=== PATIENT | female | born 1935 | race Caucasian/White ===

== ENCOUNTER 2024-05-14 13:56 | Inpatient (IN) | payer MEDICARE, OTHER, SELFPAY ==
[2024-05-14] VITALS (41 sets, daily range): BP systolic 68–137; BP diastolic 45–110; BMI 16.6
--- NOTE | 2024-05-14 11:16 | ED.GENMED ---
History of Present Illness
<YUMIKO Gruber - Last Filed: 05/14/24 13:46>
General
Chief Complaint: Breathing Problem
Source: ambulance crew and intermediate
Exam Limitations: none
Time Seen by Provider: 05/14/24 11:15
Nursing documentation reviewed up to this point in time: agreed with
History of Present Illness
History of Present Illness:
89 yr old female sent from [facility] for evaluation.
It is listed that pt is Liberian Speaking. Translation line used pt
per nurse pt was short of breath with low pulse ox 88 % RA. Pt is on O2 2l NC prn but is not compliant with O2 .
Pt is COVID + since Monday started with a cough on Monday. Pt has dementia and is incontinent.
I spoke with daughter in law over the phone. pt is full code. We attempted to use language line in [place]ian however patient does not respond. [id number] reports patient is confused and with dementia does not speak.
Review of Systems
<YUMIKO Gruber - Last Filed: 05/14/24 13:46>
Review of Systems
Allergies reviewed?: Yes
Unable to obtain full review of systems at this time due to: dementia
Other source history: family, intermediate and ambulance crew
All Other Systems: ROS reviewed and negative except as documented in HPI and ROS
Constitutional: Reports fever and fatigue
Respiratory: Reports trouble breathing
Cardiac: Reports no symptoms
ABD/GI: Reports no symptoms
: Reports no symptoms
Musculoskeletal: Reports no symptoms
Skin: Reports no symptoms
Neurological: Reports no symptoms
Psychiatric: Reports no symptoms
Phy Exam
<YUMIKO Gruber - Last Filed: 05/14/24 13:46>
General Physical Exam
General Presentation: no apparent distress
General age: appears stated age
General Skin: warm and dry
General Habitus: elderly
General Mental: confused
General Hydration: dry mucous membranes
Cardiovascular Exam
Cardiovascular Exam: tachycardia
Pulmonary Exam
Pulmonary Exam: respiratory distress and other (Rhonchi throughout ;tachypneic)
Neurological Exam
Neurological Exam: alert and other (does not respond to questions with use of language line in Liberian )
Musculoskeletal Exam
Musculoskeletal Exam: full ROM
Skin Exam
Skin Exam: normal color and warm/dry
Psychiatric Exam
Psychiatric Exam: normal mood/affect
Scores
<YUMIKO Gurber - Last Filed: 05/14/24 13:46>
Heart Failure Risk
Heart Failure Risk Score: Not Applicable
Course
<YUMIKO Gruber - Last Filed: 05/14/24 13:46>
Orders/Labs/Results
Orders:
Orders
05/14/24 11:12
Electrocardiogram (*1) Urgent
Reason for Study: Shortness of Breath
05/14/24 11:13
EKG- Treatment ONCE
05/14/24 11:17
COVID-19 Antigen Urgent
Source: Nasal Swab
Complete Blood Count/With Diff Urgent
Comprehensive Metabolic Panel Urgent
Manual Differential Urgent
Venous Blood Gas Urgent
%Oxygen/Room Air: 80
INF RAPID [Influenza A+B Rapid Molecular] Urgent
ANNETTE Source: Nasal Swab
Specimen Description:
05/14/24 11:22
Portable Chest Xray [CR Chest Portable - 1 View] Urgent
Comment:
Reason For Exam: hypoxia, resp distress
Reason Study Needs to be Portable: Patient Unstable
05/14/24 11:35
Acetaminophen [Tylenol/Feverall] 650 mg RECTAL NOW STA
05/14/24 11:37
Lactic Acid Urgent
Blood Culture Q30M
ANNETTE Source: Blood/Venous
Specimen Description:
05/14/24 11:38
Blood Culture Q30M
ANNETTE Source: Blood/Venous
Specimen Description:
05/14/24 11:41
Urinalysis Reflex To Culture Urgent
Date Specimen was Collected: 05/14/24
Time Specimen was Collected: 11:38
Urine Microscopic Reflex Cult Urgent
Urine Culture Urgent
ANNETTE Source: U
Specimen Description:
Date Specimen was Collected: 05/14/24
Time Specimen was Collected: 11:38
05/14/24 11:55
IV Insert/Care/Rem.- Treatment PRN
0.9% Sodium Chloride 1000 ml [Nss] 1,000 ml IV BOLUS
05/14/24 11:57
Cefepime HCl [Maxipime] 2,000 mg IV NOW STA
Piperacillin/Tazo 4.5 Gram [Zosyn] 4.5 gram in 100 ml IV NOW
05/14/24 12:01
Sterile Water [Sterile Water For Injection] 10 ml .ROUTE .STK-MED ONE
05/14/24 12:28
0.9% Sodium Chloride 500 ml [Nss] 500 ml IV BOLUS
05/14/24 13:17
Admit/Transfer Patient As Directed
Co-Sign Provider:
Level of Care: Inpatient admission
Assign to:: ICU
Physician / Group: sumaya
Diagnosis: acute hypoxic respiratory failure
Reason for Hospitalization: acute hypoxic respiratory failure
Expected length of stay greater than two midnights?: Yes
ELOS- Estimated Length of Stay in days: 3
I certify the patient meets the requirements for IP care: Yes
PRN Pain Medication Management As Directed
May give lesser potent ordered pain med per pt: Yes
preference::
Protocol:: Medication orders for pain may be administered in a
manner that supports deferring to patient preference
when the pt is:
- Requesting an ordered lesser potent pain medication.
Least to most potent pain medications are defined
as: acetaminophen < NSAID < tramadol < opioids
(morphine, oxycodone, hydromorphone).
- Requesting a lesser dose of the same medication IF
ORDERED.
- Requesting a less intrusive route of administration
if both routes are prescribed by the provider (PO <
IV).
05/14/24 13:18
Code Status As Directed
Resuscitation Status: Full Code
05/14/24 13:31
Sodium Bicarbonate 50 meq IV NOW STA
Abnormal Lab Results
05/14/24 05/14/24 05/14/24
11:17 11:37 11:41
WBC 18.4 H 10^3/uL
(4.8-10.8)
RBC 5.67 H 10^6/uL
(4.20-5.40)
Hgb 16.8 H g/dL
(12.0-16.0)
Hct 49.8 H %
(37.0-47.0)
RDW 15.3 H %
(11.5-14.5)
MPV 11.6 H fL
(7.4-10.4)
Abs Neuts (Manual) 16.1 H 10^3/uL
(1.4-6.5)
Segmented Neutrophils 84 H %
(42-75)
Band Neutrophils 4 H %
(0-3)
Lymphocytes (Manual) 1 L %
(20-51)
VBG pCO2 29 L mmHg
(35-48)
VBG pO2 52 H mmHg
(30-50)
VBG HCO3 19.2 L mmol/L
(22-27)
Sodium 149 H mmol/L
(135-145)
Chloride 116 H mmol/L
(98-107)
Carbon Dioxide 18 L mmol/L
(22-30)
BUN 31 H mg/dl
(7-17)
Glucose 144 H mg/dl
(70-99)
Lactic Acid 4.4 H* mmol/L
(0.7-2.0)
AST 74 H U/L
(14-36)
ALT 43 H U/L
(0-35)
Albumin 3.2 L g/dl
(3.5-5.0)
Urine Ketones Trace A
(Negative)
Ur Occult Blood Reflex 1+ A
(Negative)
Urine Bilirubin 1+ A
(Negative)
Urine Urobilinogen 3+ A
(Neg - 1+)
Leukocyte Esterase Rfl Trace A
(Negative)
Urine RBC 26-30 A /HPF
(0-2)
Urine Bacteria (Reflex) Many A
(Negative)
Urine Albumin (Reflex) 1+ A
(Neg - Trace)
SARS-CoV-2 Antigen Positive A
(Negative)
05/14/24 11:17
05/14/24 11:17
Vital Signs
Initial and Last Documented VS:
Initial Vital Signs
Pulse Resp BP Pulse Ox
121 28 100/83 89
05/14/24 11:14 05/14/24 11:14 05/14/24 11:14 05/14/24 11:14
Last Documented Vital Signs
Temp Pulse Resp BP Pulse Ox
102.7 F H 103 27 101/71 97
05/14/24 11:24 05/14/24 14:00 05/14/24 14:00 05/14/24 13:45 05/14/24 14:00
Filter Bed Placer consulted with Physician
Filter Bed Placer consulted with physician?: Yes
Name of Physician Consulted: Raul
<Froilan Carter, DO - Last Filed: 05/14/24 14:19>
Orders/Labs/Results
Orders:
Orders
05/14/24 11:12
Electrocardiogram (*1) Urgent
Reason for Study: Shortness of Breath
05/14/24 11:13
EKG- Treatment ONCE
05/14/24 11:17
COVID-19 Antigen Urgent
Source: Nasal Swab
Complete Blood Count/With Diff Urgent
Comprehensive Metabolic Panel Urgent
Manual Differential Urgent
Venous Blood Gas Urgent
%Oxygen/Room Air: 80
INF RAPID [Influenza A+B Rapid Molecular] Urgent
ANNETTE Source: Nasal Swab
Specimen Description:
05/14/24 11:22
Portable Chest Xray [CR Chest Portable - 1 View] Urgent
Comment:
Reason For Exam: hypoxia, resp distress
Reason Study Needs to be Portable: Patient Unstable
05/14/24 11:35
Acetaminophen [Tylenol/Feverall] 650 mg RECTAL NOW STA
05/14/24 11:37
Lactic Acid Urgent
Blood Culture Q30M
ANNETTE Source: Blood/Venous
Specimen Description:
05/14/24 11:38
Blood Culture Q30M
ANNETTE Source: Blood/Venous
Specimen Description:
05/14/24 11:41
Urinalysis Reflex To Culture Urgent
Date Specimen was Collected: 05/14/24
Time Specimen was Collected: 11:38
Urine Microscopic Reflex Cult Urgent
Urine Culture Urgent
ANNETTE Source: U
Specimen Description:
Date Specimen was Collected: 05/14/24
Time Specimen was Collected: 11:38
05/14/24 11:55
IV Insert/Care/Rem.- Treatment PRN
0.9% Sodium Chloride 1000 ml [Nss] 1,000 ml IV BOLUS
05/14/24 11:57
Cefepime HCl [Maxipime] 2,000 mg IV NOW STA
Piperacillin/Tazo 4.5 Gram [Zosyn] 4.5 gram in 100 ml IV NOW
05/14/24 12:01
Sterile Water [Sterile Water For Injection] 10 ml .ROUTE .STK-MED ONE
05/14/24 12:28
0.9% Sodium Chloride 500 ml [Nss] 500 ml IV BOLUS
05/14/24 13:17
Admit/Transfer Patient As Directed
Co-Sign Provider:
Level of Care: Inpatient admission
Assign to:: ICU
Physician / Group: sumaya
Diagnosis: acute hypoxic respiratory failure
Reason for Hospitalization: acute hypoxic respiratory failure
Expected length of stay greater than two midnights?: Yes
ELOS- Estimated Length of Stay in days: 3
I certify the patient meets the requirements for IP care: Yes
PRN Pain Medication Management As Directed
May give lesser potent ordered pain med per pt: Yes
preference::
Protocol:: Medication orders for pain may be administered in a
manner that supports deferring to patient preference
when the pt is:
- Requesting an ordered lesser potent pain medication.
Least to most potent pain medications are defined
as: acetaminophen < NSAID < tramadol < opioids
(morphine, oxycodone, hydromorphone).
- Requesting a lesser dose of the same medication IF
ORDERED.
- Requesting a less intrusive route of administration
if both routes are prescribed by the provider (PO <
IV).
05/14/24 13:18
Code Status As Directed
Resuscitation Status: Full Code
05/14/24 13:31
Sodium Bicarbonate 50 meq IV NOW STA
Abnormal Lab Results
05/14/24 05/14/24 05/14/24
11:17 11:37 11:41
WBC 18.4 H 10^3/uL
(4.8-10.8)
RBC 5.67 H 10^6/uL
(4.20-5.40)
Hgb 16.8 H g/dL
(12.0-16.0)
Hct 49.8 H %
(37.0-47.0)
RDW 15.3 H %
(11.5-14.5)
MPV 11.6 H fL
(7.4-10.4)
Abs Neuts (Manual) 16.1 H 10^3/uL
(1.4-6.5)
Segmented Neutrophils 84 H %
(42-75)
Band Neutrophils 4 H %
(0-3)
Lymphocytes (Manual) 1 L %
(20-51)
VBG pCO2 29 L mmHg
(35-48)
VBG pO2 52 H mmHg
(30-50)
VBG HCO3 19.2 L mmol/L
(22-27)
Sodium 149 H mmol/L
(135-145)
Chloride 116 H mmol/L
(98-107)
Carbon Dioxide 18 L mmol/L
(22-30)
BUN 31 H mg/dl
(7-17)
Glucose 144 H mg/dl
(70-99)
Lactic Acid 4.4 H* mmol/L
(0.7-2.0)
AST 74 H U/L
(14-36)
ALT 43 H U/L
(0-35)
Albumin 3.2 L g/dl
(3.5-5.0)
Urine Ketones Trace A
(Negative)
Ur Occult Blood Reflex 1+ A
(Negative)
Urine Bilirubin 1+ A
(Negative)
Urine Urobilinogen 3+ A
(Neg - 1+)
Leukocyte Esterase Rfl Trace A
(Negative)
Urine RBC 26-30 A /HPF
(0-2)
Urine Bacteria (Reflex) Many A
(Negative)
Urine Albumin (Reflex) 1+ A
(Neg - Trace)
SARS-CoV-2 Antigen Positive A
(Negative)
05/14/24 11:17
05/14/24 11:17
Vital Signs
Initial and Last Documented VS:
Initial Vital Signs
Pulse Resp BP Pulse Ox
121 28 100/83 89
05/14/24 11:14 05/14/24 11:14 05/14/24 11:14 05/14/24 11:14
Last Documented Vital Signs
Temp Pulse Resp BP Pulse Ox
102.7 F H 103 27 101/71 97
05/14/24 11:24 05/14/24 14:00 05/14/24 14:00 05/14/24 13:45 05/14/24 14:00
<YUMIKO Gruber - Last Filed: 05/14/24 13:46>
MDM/Problems Addressed
Differential Diagnosis Includes:
Not limited respiratory stress, COVID-pneumonia, sepsis
MDM/Problems Addressed:
Patient is a 10 female 9-year-old with dementia from the intermediate sent for evaluation of respiratory distress. Patient started with cough as per intermediate staff on Monday tested positive for COVID however today was noted to have trouble
breathing. She has an oxygen as needed but is normally noncompliant. Patient presents very hypoxic and tachypneic and tachycardic she is found to be febrile at 102.7 here. Patient presented on nonrebreather rhonchi throughout however respiratory
was paged and put patient on high flow. Patient did improve on high flow. Patient remains to positive for COVID however x-ray does show left upper lobe pneumonia antibiotics ordered. Patient's lactic is 4.4 patient was given septic fluids
patient's blood pressure was low however did stabilize and improve with fluid . White count is elevated 18,000 BUN elevated at 31 LFTs minimally elevated. discussed with ED physician , adnitted to the hospitalist service.
i did speak with family over the phone initially, pt is full code. Not limited to respiratory distress
<YUMIKO Gruber - Last Filed: 05/14/24 13:46>
*Radiology
Radiology exam reviewed: radiology read reviewed
*Pulse Oximetry
Patient hypoxic: yes
*EKG
Interpreted by ED Provider?: Yes
Heart Rate: 119
Rate: tachycardiac
*Critical Care Note
Total Time (30-74mins, 75-104mins- exclusive of procedures): Not Applicable
ED Attending Note
<YUMIKO Gruber - Last Filed: 05/14/24 13:46>
-
Portions of this chart may have been created with voice recognition software.� Occasional wrong word or��sound alike� substitutions may have occurred due to the inherent limitations of voice recognition software.
<Froilan Carter DO - Last Filed: 05/14/24 14:19>
ED Attending Note
Patient seen and examined by attending physician: Yes
ED Attending Note:
I have reviewed and agree with history and treatment plan by Maricel Lopez. My exam reveals a 89-year-old female in moderate respiratory distress, some improvement on high flow. Treat for pneumonia, and hypoxia. Admit to hospitalist.
Discharge Plan
Departure
Patient Disposition: Admit
Date of Disposition: 05/14/24
Time of Disposition: 12:27
Admit to: IMU
Admit to doctor: hospitalist
Presentation/result/management discussed w/ accepting MD/DO: Hospitalist
Patient with high blood pressure during this ER visit?: No
Condition: Fair
Covid-19: Confirmed COVID-19
Discharge Problem:
COVID-19, Acute respiratory failure, Sepsis
Interventions
Interventions:
*Risk Screen - Suicide Last Done: 05/14/24 11:23
*General Assessment Last Done: 05/14/24 11:23
*Neglect/Abuse Screening Last Done: 05/14/24 11:23
*ED COVID-19 Vaccine History Last Done: 05/14/24 11:23
ED- Cardiac Assessment Last Done: 05/14/24 11:52
ED- Pulmonary Assessment Last Done: 05/14/24 11:52
[2024-05-14 11:26] LABS: Venous Blood Gas B.E. -3.5 mmol/L (-4 to +4); Venous Blood Gas HCO3 19.2 mmol/L (22-27); Venous Blood Gas O2 Sat % 85.3 %; Venous Blood Gas pCO2 29 mmHg (35-48); Venous Blood Gas pH 7.43 (7.32-7.43); Venous Blood Gas pO2 52 mmHg (30-50)
[2024-05-14 11:29] LABS: COVID-19 Antigen Positive (Negative); Hematocrit 49.8 % (37.0-47.0); Hemoglobin 16.8 g/dL (12.0-16.0); Mean Corp Hgb Conc. 33.7 g/dL (33.0-37.0); Mean Corpuscular Hgb 29.6 pg (27.0-31.0); Mean Corpuscular Volume 87.8 fL (81.0-99.0); Mean Platelet Volume 11.6 fL (7.4-10.4); Platelet Count 293 10^3/uL (130-400); Red Blood Cell Count 5.67 10^6/uL (4.20-5.40); Red Cell Dist. Width 15.3 % (11.5-14.5); White Blood Cell Count 18.4 10^3/uL (4.8-10.8)
[2024-05-14] MEDS: TYLENOL/FEVERALL 650 MG RECTAL ×2 (11:37→18:16)
[2024-05-14 11:48] LABS: ALT (SGPT) 43 U/L (0-35); AST (SGOT) 74 U/L (14-36); Albumin 3.2 g/dl (3.5-5.0); Alkaline Phosphatase 97 U/L (38-126); Blood Urea Nitrogen 31 mg/dl (7-17); Calcium 9.6 mg/dl (8.4-10.2); Carbon Dioxide 18 mmol/L (22-30); Chloride 116 mmol/L (98-107); Glucose 144 mg/dl (70-99); Sodium 149 mmol/L (135-145); Total Bilirubin 1.3 mg/dl (0.2-1.3); Total Protein 6.8 g/dl (6.3-8.2); eGFR 54.53
[2024-05-14 11:58] LABS: Absolute Neutrophils -Man Diff 16.1 10^3/uL (1.4-6.5); Atypical Lymphocytes 2 %; Band Neutrophils 4 % (0-3); Lymphocytes 1 % (20-51); Metamyelocytes 1 % (-); Monocytes 8 % (2-9); Platelets Checked Yes; Segmented Neutrophils 84 % (42-75)
[2024-05-14 11:59] LABS: Normal RBC Morphology Yes; Total Cells Counted 100
[2024-05-14] MEDS: ZOSYN 100 IV (12:03)
[2024-05-14] MEDS: MAXIPIME 2000 MG IV (12:03)
[2024-05-14 12:04] LABS: Urine Albumin 1+ (Neg - Trace); Urine Bilirubin 1+ (Negative); Urine Character Clear (Clear); Urine Color Yellow; Urine Glucose Negative (Negative); Urine Ketone Trace (Negative); Urine Leukocyte Trace (Negative); Urine Nitrite Negative (Negative); Urine Occult Blood 1+ (Negative); Urine Specific Gravity 1.025 (<1.030); Urine Urobilinogen 3+ (Neg - 1+)
[2024-05-14] MEDS: NSS 1000 IV ×2 (12:07→15:24)
[2024-05-14 12:15] LABS: Lactic Acid 4.4 mmol/L (0.7-2.0)
[2024-05-14 12:15] LABS: Urine Squamous Cell >30 /LPF (Few)
[2024-05-14 12:18] LABS: Urine Red Blood Cell 26-30 /HPF (0-2)
[2024-05-14 12:19] LABS: Urine Bacteria Many (Negative)
[2024-05-14] MEDS: NSS 500 IV (12:52)
--- NOTE | 2024-05-14 12:52 | HPS.HSE ---
Family Physician
-
Family Physician: Дмитрий Frankel MD
Chief Complaint
-
sob
History of Present Illness
89 yr old female with PMH for aortic aneurysm, anxiety, coronary artery disease, chronic respiratory failure, pleural effusion, dementia, PE, depression presented to us from sent from [facility] with hypoxia. Patient is primarily
Australian-speaking. Patient is very poor historian. As per daughter, she most of this time does not speak. She was noted to have chest congestion on Monday. She was tested positive for COVID on Monday. Patient uses 2 L of oxygen as needed.
This morning she was noted 88% in room air.she was also noted to have fever at [place]. Son saw her on Monday and the daughter saw her on Monday. They did not notice any cough. Review of system is limited. Patient never received COVID vaccination.
Upon arrival patient is in septic shock. Patient received cefepime, Zosyn, fluids and Tylenol in ER. Blood culture sent from ER. Admitted for further management
Medical History
Past Medical History
Past Medical History: Reports Other
Additional Past Medical History:
Aortic aneurysm
Anxiety
Coronary artery disease
Chronic respiratory failure
Pleural effusion
Dementia
PE
Depression
Past Surgical History: Reports None
Social History
Tobacco: Non-smoker
Alcohol: None
Drug: None
Living: [facility]
Family History
Family History: Not pertinent
Allergies / Home Medications
Allergies reflects when Allergies were last updated in [facility].
Home Medications with original date entered in [facility]
Allergy/Medication List:
Allergies
Allergy/AdvReac Type Severity Reaction Status Date / Time
No Known Allergies Allergy Verified 05/14/24 11:54
Home Medications
acetaminophen 325 mg tablet 650 mg PO Q4H PRN pain or temp>[id number] 05/14/24
amlodipine 5 mg tablet 5 mg PO DAILY hold for SBP<110 or HR<55 05/14/24
apixaban 2.5 mg tablet (Eliquis) 2.5 mg PO Q12 Blood Clot Prevention/Tx 05/14/24
dextromethorphan-guaifenesin 10 mg-100 mg/5 mL oral syrup 10 ml PO TID from 05/11/24 -05/15/24 05/14/24
diclofenac sodium 1 % topical gel 0.5 g topical Q6HPRN PRN right hip discomfort 05/14/24
magnesium hydroxide 400 mg/5 mL oral suspension (Milk of Magnesia) 30 ml PO HSPRN PRN no BM x 3 days 05/14/24
megestrol 400 mg/10 mL (40 mg/mL) oral suspension 400 mg PO DAILY appetite stimulation 05/14/24
metoprolol succinate 25 mg tablet,extended release 24 hr 25 mg PO DAILY hold for SBP<110 or HR<55 05/14/24
Review of Systems
-
Unable to obtain full review of systems at this time due to: Dementia
Physical Exam
Vital Signs
Vital Signs
Temp Pulse Resp BP Pulse Ox
102.7 F H 115 42 105/92 96
05/14/24 11:24 05/14/24 12:30 05/14/24 12:30 05/14/24 12:22 05/14/24 12:22
Physical Exam
General: Well Developed, Well Nourished and No Apparent Distress
HEENT: NormoCephalic, Moist mucous membranes and Atraumatic
Respiratory: Clear
Cardiac: S1/S2 and Regular Rhythm; No Murmur or Rub
GI: Soft, Non Tender, Non Distended and Normal Bowel Sounds; No Organomegaly
Rectal: Deferred by Provider
Musculoskeletal: No Clubbing, No Cyanosis and No Edema
Skin: No Rash
Neuro: Nonfocal/grossly intact
Psych: Calm
Laboratory Results
-
05/14/24 11:17
05/14/24 11:17
Laboratory Results
pH Cancelled 05/14/24 12:05
pCO2 Cancelled 05/14/24 12:05
pO2 Cancelled 05/14/24 12:05
HCO3 Cancelled 05/14/24 12:05
Lactic Acid 4.4 mmol/L (0.7-2.0) H* 05/14/24 11:37
Total Bilirubin 1.3 mg/dl (0.2-1.3) 05/14/24 11:17
AST 74 U/L (14-36) H 05/14/24 11:17
ALT 43 U/L (0-35) H 05/14/24 11:17
Alkaline Phosphatase 97 U/L (38-126) 05/14/24 11:17
Data Reviewed
-
Diagnostic Radiology: Report Reviewed by me
Lab Data: Labs Reviewed by me
Impression/Plan
-
#acute hypoxic respiratory failure likely from COVID infection/pneumonia
-patient requiring high flow oxygen
#severe sepsis as evident by wbc 18.4,lactic 4.4, temp 102.7, hypotension, tachycardia
-blood culture sent from ER
-positive COVID, negative influenza a and b
-Continue vanco and Zosyn
-Continue supplemental oxygen
-Continue Tylenol as needed for fever
-Fluids continued
-chest x ray with There is consolidation in the left upper lobe likely pneumonia.
-iv remdesivir and Decadron
-trend lactic
#hemoconcentration likely dehydration
-hgb 16.8, hct 49.8
-Fluids continued
-CBC in a.m.
#hypernatremia/metabolic acidosis likely dehydration
-na 149, co218
-Fluids continued
-BMP in a.m.
# History of hypertension
-Patient is hypotensive in ER
-Hold Norvasc and metoprolol
#PE
-eliquis
#DVT prophylaxis
-eliquis
#CODE status
-full code
--- NOTE | 2024-05-14 13:33 | W.PN.UPDATE ---
Update Note
Progress Note Update
This is an addendum to the H&P written by Jayla Mejia on 05/14/2024. Patient seen and examined independently with VETERINARY SURGEON.
89-year-old Gabonese-speaking female with past medical history of severe dementia, PE on Eliquis, hypertension, presenting with hypoxemia with low pulse ox in 88%. She was COVID-positive since Monday when she started having cough.
Patient arrives hypoxemic respiratory failure requiring high flow. Fever 102. Blood pressure as low as 76/47. Chest x-ray shows left upper lobe consolidation.
Labs show leukocytosis, mild hyponatremia, lactic acidosis, mild transaminitis.
Patient with septic shock secondary to COVID-pneumonia/possible bacterial pneumonia. Check blood cultures. Check Legionella and strep antigen. Check MRSA. No productive cough to check sputum. IV fluids, vancomycin/Zosyn. Start dexamethasone 6
mg IV daily, remdesivir. Hold antihypertensive medications.
--- NOTE | 2024-05-14 15:09 | CON.INTV ---
Consultation
Consultation Request
Date/Time Consultation Requested: 05/14/2024-3 PM
Date/Time Consultation Performed: 05/14/2024-3:15 PM
Requesting Provider: Hospitalist
Performing Provider: Dr. Lopez
Reason for Consultation: Pneumonia and respiratory failure
Medical History
-
Chief Complaint: Shortness of breath
History of Present Illness:
89-year-old Dutch speaking female with a history of aortic aneurysm, anxiety, CAD, chronic respiratory failure-on chronic 2 L of oxygen, pleural effusions, depression, pulmonary embolism and dementia presented from [facility] with
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 Patient is in moderate respiratory distress in the ICU and non-Danish
speaking. Review of systems could not be obtained at this time with her dementia and language barrier.
Past Medical History
Past Medical History: None (Aortic aneurysm. Anxiety. CAD. Chronic respiratory failure on 2 L O2. Pleural effusions. Dementia. History of PE. Depression.)
Social History
Tobacco: Non-smoker
Alcohol: None
Drug: None
Living: [facility]
Occupational Exposures: Unknown asbestos exposure
Environmental Exposures: Unknown tuberculosis exposure
Family History
Family History: Reviewed & Not Pertinent
Allergies / Home Medications
Allergies
Allergy/AdvReac Type Severity Reaction Status Date / Time
No Known Allergies Allergy Verified 05/14/24 11:54
Home Medications
�Medication �Instructions �Recorded �Confirmed �Last Taken �Type
acetaminophen 325 mg tablet 650 mg PO Q4H PRN pain or 05/14/24 05/14/24 Unknown History
temp>[id number]
amlodipine 5 mg tablet 5 mg PO DAILY hold for SBP<110 or 05/14/24 05/14/24 Unknown History
HR<55
apixaban 2.5 mg tablet (Eliquis) 2.5 mg PO Q12 Blood Clot 05/14/24 05/14/24 Unknown History
Prevention/Tx
dextromethorphan-guaifenesin 10 10 ml PO TID from 05/11/24 05/14/24 05/14/24 Unknown History
mg-100 mg/5 mL oral syrup -05/15/24
diclofenac sodium 1 % topical gel 0.5 g topical Q6HPRN PRN right hip 05/14/24 05/14/24 Unknown History
discomfort
magnesium hydroxide 400 mg/5 mL 30 ml PO HSPRN PRN no BM x 3 days 05/14/24 05/14/24 Unknown History
oral suspension (Milk of Magnesia)
megestrol 400 mg/10 mL (40 mg/mL) 400 mg PO DAILY appetite 05/14/24 05/14/24 Unknown History
oral suspension stimulation
metoprolol succinate 25 mg 25 mg PO DAILY hold for SBP<110 or 05/14/24 05/14/24 Unknown History
tablet,extended release 24 hr HR<55
Review of Systems
-
Unable to Obtain full review of systems at this time due to: Other (Per HPI)
Vitals / Labs / Diagnostic Testing
Vital Signs
Temp Pulse Resp BP Pulse Ox
102.7 F H 110 33 103/81 93
05/14/24 11:24 05/14/24 15:01 05/14/24 15:01 05/14/24 14:46 05/14/24 14:46
Lab Data
05/14/24 11:17
05/14/24 11:17
Laboratory Results
05/14/24
12:05
pH Cancelled
pCO2 Cancelled
pO2 Cancelled
HCO3 Cancelled
O2 Delivery Level Cancelled
Microbiology
05/14/24 11:17 Nasal Swab Influenza Types A & B (ROGER) - Final
Negative for Influenza A & B, NAAT
Negative results must be combined with clinical observations
and patient history.
Nucleic Acid Amplification test (NAAT)performed on the
[employer] ID NOW platform.
Diagnostic Testing:
Physical Exam
-
Exam:
Well-nourished and well-developed in no apparent distress
HEENT-atraumatic, normocephalic
Neck-supple, no JVD, no bruit
Heart-regular rate and rhythm-systolic murmur
Chest with diminished breath sounds, crackles at the bases and no wheezes
Abdomen-soft, nontender, nondistended, no hepatosplenomegaly
Extremities-no cyanosis, clubbing, trace lower extremity edema
Integument-intact, no rashes, lesions or ecchymosis
Neurology-alert and oriented, nonfocal motor and sensory exam
Assessment
-
89-year-old Dutch speaking female with a history of severe dementia, aortic aneurysm, anxiety, CAD, COPD, chronic respiratory failure-on chronic 2 L of oxygen, pleural effusions, depression, pulmonary embolism presented from [facility]
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
Respiratory failure-acute on top of chronic hypoxemic respiratory failure
Pneumonia-half-way acquired
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
Aspiration risk
Leukocytosis
Lymphopenia
Polycythemia
Hyponatremia
Metabolic acidosis
Lactic acidosis
Hyperglycemia
Transaminitis
Protein calorie malnutrition
Conditions present prior to admission:
Aortic aneurysm.
Anxiety.
CAD.
Chronic respiratory failure on 2 L O2.
Former smoker-greater than 81-ylya-psyt-quit January 2024
Pleural effusions.
Severe dementia
History of PE.
Depression.
Scoliosis
Ventral hernia
Plan
Radiographic appearance consistent with lobar probable bacterial pneumonia-does not have the appearance of diffuse COVID-pneumonia
Establish if the patient has been vaccinated, and if she has had vaccines-how many, when was last, and whether she had COVID infection before-all contributing to long-term immunity
Patient will be admitted to medical intensive care unit
Supplemental oxygen as needed-high flow oxygen if needed
Inhalers if needed-currently not bronchospastic
Follow chest x-ray
Currently a full code-intubated mechanically ventilated if necessary-Hope to avoid establish CODE STATUS illness severely demented 89-year-old half-way patient
Incentive spirometry
Aspiration precautions
Speech therapy evaluation if needed
Isolation per protocol
Negative pressure room
Prone position if needed to help with oxygenation
Check cultures
Sputum culture
Follow radiographically
Monitor leukocytosis and temperature curve
Intravenous fluids
If sepsis suspected then 30 mL/kg crystalloids with subsequent boluses as needed
Norepinephrine if needed and then vasopressin if needed
Dexamethasone initiated per protocol
Remdesivir added
Paxlovid considered, however, she is now hospitalized on high flow and there is a little data on this population with Paxlovid which I believe is a better antiviral
Monitor hemoglobin and polycythemia-suspect some hemoconcentration and chronic hypoxemia leading to secondary polycythemia
Monitor blood sugar
Insulin supplementation as needed especially in light of steroid initiation
Monitor LFTs
DVT prophylaxis
Nutrition
Early mobilization
Dr. Lopez spoke at length in person to son and [id number]-explained the grave situation, declining, potential need for intubation, CPR, defibrillation and what the patient would have wanted-after lengthy conversation explaining potential
futile care if we progress that far, potential for harming the patient with chest compressions and shocking as well as uncomfortable ventilator he continues to want full support-we will continue to discuss this with him and hopefully make her
supportive care but short of intubation/CPR and shocking-for now she is a full code
Dpatbjio-FUS-mknp phone [phone] and daughter-involvement [facility] [phone]
Critical care statement: A total of 55 minutes of critical care time was provided for this patient today. This includes management of unstable vital signs, evaluation of the patient at bedside, reviewing the patient's pertinent medical records
including radiographs, management of respiratory failure, microbiology, laboratory evaluations, and discussion with primary team, consultants, pharmacy, nutrition, physical therapy, case management, charge nurse, critical care nursing, and
respiratory therapy.
Diagnostic data:
Chest x-ray 05/14/2024-left upper lobe consolidation
Data Reviewed
-
EKG: Report reviewed by me
Radiology: Image personally visualized and interpreted and Report reviewed by me
Medical Tests (Nuc Med, Echo etc): Report reviewed by me
Labs: Labs reviewed by me
Old Records: Reviewed
Critical Care Time (in minutes): 55
--- NOTE | 2024-05-14 15:22 | PHA.VAN.IN ---
Assessment
- Assessment
Renal Function: Unknown baseline
AUC Dosing Plan
- Dosing Variables
Dosing Weight (kg): 50
Dosing CrCl (ml/min): 27
Vd coefficient (L/kg): 0.7
IBW used for dosing weight given BMI < 18.5
- Empiric Dosing
Initial / Loading Dose: 1000mg - administration pending
Maintenance Regimen: Vanc 500mg Q24H starting 05/15 0600
Estimated Peak (mcg*h/mL): 30.1
Estimated Trough (mcg/ml): 16.2
Estimated Half Life (H): 25.8
Will tentatively start scheduled dosing with unknown baseline SCR and border CrCl
BUN slightly elevated
Will follow trends - low threshold to switch to dosing by level
- Monitoring
No levels ordered at this time: consider levels in next few days
MRSA Screen: Ordered per protocol
Pharmacokinetics Vancomycin I
- -
Patient Age: 89
Patient Sex: Female
Vancomycin Day #: 1
Indication: Pulmonary/Respiratory
Requesting Provider: Benigno Mejia
Pertinent Antimicrobial Allergies:
NKDA
Height / Weight:
Height 5 ft 2 in
Actual Weight 43 kg
IBW in k
Pertinent Past Medical History: BMI ~17
- Vital Signs / Lab Results
Temp Pulse Resp BP Pulse Ox
102.7 F H 110 33 103/81 93
05/14/24 11:24 05/14/24 15:01 05/14/24 15:01 05/14/24 14:46 05/14/24 14:46
Lab Results - Hematology
05/14/24
11:17
WBC 18.4 H
Band Neutrophils 4 H
Lab Results - Chemistry
05/14/24
11:17
BUN 31 H
Creatinine 1.0
Albumin 3.2 L
05/14/24
11:37
Lactic Acid 4.4 H*
Lab Results - Urine
05/14/24
11:41
Urine Nitrite (Reflex) Negative
Leukocyte Esterase Rfl Trace A
Urine WBC (Reflex) 3-5
Ur Squamous Epith Cells >30
Urine Bacteria (Reflex) Many A
Microbiology Results
05/14/24 11:17 Influenza Types A & B (ROGER) - Final
Nasal Swab Negative for Influenza A & B, NAAT
Negative results must be combined with clinical observations
and patient history.
Nucleic Acid Amplification test (NAAT)performed on the
[employer] ID NOW platform.
[2024-05-14] MEDS: SODIUM BICARBONATE 50 MEQ IV (15:24)
[2024-05-14] MEDS: DECADRON 6 MG IV (15:25)
[2024-05-14] MEDS: VANCOCIN 200 IV (15:25)
[2024-05-14] MEDS: VEKLURY 250 MG IV (15:37)
[2024-05-14] MEDS: VIBRAMYCIN 260 MG IV (17:25)
[2024-05-14 17:44] LABS: Lactic Acid 5.3 mmol/L (0.7-2.0)
[2024-05-14] MEDS: ZOSYN 50 IV (17:59)
--- NOTE | 2024-05-14 18:08 | PTCARENOTE ---
Received pt from ED on high flow, incontinent of urine and stool. Manually disimpacted for large amount soft brown stool. CHG bath completed. Mouth care also done, which pt fought. Pt with baseline dementia and only danish speaking. Meds given
and admission completed. Otherwise see worklist. Attempted to turn pt on her side, but she moved herself off pillow and turned opposite. Unable to prone.
--- NOTE | 2024-05-14 19:27 | PTCARENOTE ---
pt in bed on high flow. Incontinent of urine. ABT adm per order
--- NOTE | 2024-05-14 20:00 | PTCARENOTE ---
Received pt via handoff. Pt confused, not oriented to person, place or time, febrile. Able to move all extremities but very tense and weak. Sinus tachy, pulse weak on palpation, no edema. Pt on 50L highflow, lung sounds diminished with crackles at
the bases. Incontinent of urine and stool. Hypoactive bowel sounds in all 4Q. Purewick place draining yellow urine. Skin is pale and warm. Gtts running see flowsheet. Labs drawn and hygiene performed.
[2024-05-14] MEDS: LEVOPHED 250 IV (20:28)
[2024-05-14 21:13] LABS: Lactic Acid 4.8 mmol/L (0.7-2.0)
[2024-05-15] VITALS (85 sets, daily range): BP systolic 71–139; BP diastolic 45–111; BMI 17.3
--- NOTE | 2024-05-15 | PTCARENOTE ---
Levo gtt started see flowsheet. Pt remains on highflow. Hygiene performed.
[2024-05-15] MEDS: ZOSYN 50 IV ×5 (01:00→23:24)
[2024-05-15 01:36] LABS: Lactic Acid 3.5 mmol/L (0.7-2.0)
[2024-05-15] MEDS: NSS 1000 IV (04:28)
--- NOTE | 2024-05-15 04:36 | PTCARENOTE ---
All systems reassessed. Labs drawn, hygiene performed. Assessment ongoing.
[2024-05-15 04:57] LABS: PT 18.3 Sec (11.4-14.6)
[2024-05-15 05:18] LABS: Hematocrit 46.9 % (37.0-47.0); Hemoglobin 15.5 g/dL (12.0-16.0); Mean Corpuscular Volume 90.7 fL (81.0-99.0); Mean Platelet Volume 12.1 fL (7.4-10.4); Platelet Count 222 10^3/uL (130-400); Red Blood Cell Count 5.17 10^6/uL (4.20-5.40); Red Cell Dist. Width 15.5 % (11.5-14.5); White Blood Cell Count 15.3 10^3/uL (4.8-10.8)
[2024-05-15 05:22] LABS: ALT (SGPT) 35 U/L (0-35); AST (SGOT) 64 U/L (14-36); Albumin 2.2 g/dl (3.5-5.0); Alkaline Phosphatase 66 U/L (38-126); Blood Urea Nitrogen 28 mg/dl (7-17); Calcium 8.2 mg/dl (8.4-10.2); Carbon Dioxide 19 mmol/L (22-30); Chloride 118 mmol/L (98-107); Estimated Creatinine Clearance 27 ml/min; Glucose 113 mg/dl (70-99); Potassium 3.5 mmol/L (3.5-5.1); Sodium 154 mmol/L (135-145); Total Bilirubin 1.3 mg/dl (0.2-1.3); Total Protein 5.3 g/dl (6.3-8.2); eGFR 54.53
[2024-05-15] MEDS: VANCOCIN HCL 500 MG 100 IV (05:23)
[2024-05-15] MEDS: VIBRAMYCIN 260 MG IV ×2 (06:09→18:16)
--- NOTE | 2024-05-15 07:37 | W.PN.INTV ---
Today's Communication / Plan
Recommendations
No change in Decadron
Wean FiO2
Prone positioning if able
Continue antibiotics
Continue antivirals
Monitor serum sodium-nephrology consultation
Goals of care
Assessment
-
89-year-old Monegasque speaking female with a history of severe dementia, aortic aneurysm, anxiety, CAD, COPD, chronic respiratory failure-on chronic 2 L of oxygen, pleural effusions, depression, pulmonary embolism presented from [facility]
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
Respiratory failure-acute on top of chronic hypoxemic respiratory failure
Pneumonia-group home acquired
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
Gram-negative bacteremia
UTI
Aspiration risk
Leukocytosis
Lymphopenia
Polycythemia
Hyponatremia
Metabolic acidosis
Lactic acidosis
Hyperglycemia
Transaminitis
Protein calorie malnutrition-BMI 17
DNR
Conditions present prior to admission:
Aortic aneurysm.
Anxiety.
CAD.
Chronic respiratory failure on 2 L O2.
Former smoker-greater than 59-vthr-jfnf-quit January 2024
Pleural effusions.
Severe dementia
History of PE.
Depression.
Scoliosis
Ventral hernia
Plan
Radiographic appearance consistent with lobar probable bacterial pneumonia-does not have the appearance of diffuse COVID-pneumonia
Reportedly patient is unvaccinated and unclear whether she had COVID infection before-trying to establish previous long-term immunity
Remains critically ill on high flow oxygen with marginal saturations
Continue supplemental oxygen-attempt to wean
NIV if needed
Inhalers if needed-currently not bronchospastic
Follow chest x-ray
Currently continues to be a full code-intubated mechanically ventilated if necessary-Hope to avoid establish CODE STATUS illness severely demented 89-year-old group home patient
Incentive spirometry if able
Aspiration precautions per protocol
Speech therapy evaluation if needed
Isolation per protocol
Negative pressure room
Prone position if needed to help with oxygenation
Cultures thus far reviewed
Sputum culture-unable to produce
MRSA screen positive
Urine Legionella negative
Follow radiographically
Monitor leukocytosis and temperature curve
Intravenous fluids
Intravenous fluids
Norepinephrine if needed and then vasopressin if needed
Dexamethasone initiated per protocol
Remdesivir also continues per protocol
Paxlovid considered, however, she is now hospitalized on high flow and there is a little data on this population with Paxlovid which I believe is a better antiviral
Monitor hemoglobin and polycythemia-suspect some hemoconcentration and chronic hypoxemia leading to secondary polycythemia-with hydration now 15.5
Monitor blood sugar
Insulin supplementation as needed especially in light of steroid initiation
Monitor LFTs
Monitor serum sodium
Monitor serum bicarb
Increase free water
Nephrology consultation requested
DVT prophylaxis
Nutrition
Early mobilization
Spoke with primary team and they will work on goals of care including DNR status
Dr. Lopez spoke at length in person to son and jekmyfai-mk-jsh-05/15/2024 explained the grave situation, declining, potential need for intubation, CPR, defibrillation and what the patient would have wanted-after lengthy conversation explaining
potential futile care if we progress that far, potential for harming the patient with chest compressions and shocking as well as uncomfortable ventilator he continues to want full support-we will continue to discuss this with him and hopefully make
her supportive care but short of intubation/CPR and shocking-for now she is a full code
Ebfqrvxo-EQK-rgxu phone [phone] and daughter-involvement L[place] [phone]
Critical care statement: A total of 45 minutes of critical care time was provided for this patient today. This includes management of unstable vital signs, evaluation of the patient at bedside, reviewing the patient's pertinent medical records
including radiographs, management of respiratory failure, microbiology, laboratory evaluations, and discussion with primary team, consultants, pharmacy, nutrition, physical therapy, case management, charge nurse, critical care nursing, and
respiratory therapy.
Diagnostic data:
Chest x-ray 05/14/2024-left upper lobe consolidation
Subjective Dataa
Subjective Data
Date of Service:
Date of Service: May 15, 2024
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
Subjective:
Alert, moving all extremities, no respiratory distress, now on high flow oxygen
Review of Systems
General: Other (Per HPI)
Objective Data
Data Reviewed
Vital Signs / I&O / Oxygen:
Vital Signs
Temp Pulse Resp BP Pulse Ox
99.7 F 94 34 77/68 95
05/15/24 00:00 05/15/24 06:00 05/15/24 06:00 05/15/24 06:00 05/15/24 05:45
Intake and Output
05/14/24 05/15/24 05/16/24
06:59 06:59 06:59
Intake Total 1837.5 / 1837.5
Balance 1837.5 / 1837.5
SaO2 95
Nasal Cannula flow liters per 50
minute
Physical Exam
General: Respiratory Distress (Mild) and Comfortable
HEENT: Normocephalic, Anicteric and Moist Mucous Membranes
Cardiovascular: Regular Rhythm and Murmur
Respiratory: Wheeze (n), Crackles (Left greater than right), Rhonchi, Non-Labored Respirations, Accessory Resp Muscle Use (n) and Stridor (n)
GI: Soft, Non Distended and Non Tender
Neurology: Awake, Alert and No Motor Deficits
Skin: Warm, Good Color, Cyanosis (n), Jaundice (n) and Rash
Labs/Micro/Reports
Lab Data
05/15/24 04:26
05/15/24 04:26
Laboratory Results
05/14/24 05/15/24
12:05 04:26
PT 18.3 H
INR 1.50
pH Cancelled
pCO2 Cancelled
pO2 Cancelled
HCO3 Cancelled
O2 Delivery Level Cancelled
Microbiology
05/14/24 17:06 Nose Nasal Screen MRSA (PCR) - Final
Staph aureus MRSA
05/14/24 11:41 Urine Legionella Urinary Antigen - Final
Negative for Legionella pneumophila Serogroup 1 antigen.
A negative result does not rule out the possiblity of
Legionella infection due to other serogroups or species of
Legionella. Clinical correlation is recommended.
05/14/24 11:17 Nasal Swab Influenza Types A & B (ROGER) - Final
Negative for Influenza A & B, NAAT
Negative results must be combined with clinical observations
and patient history.
Nucleic Acid Amplification test (NAAT)performed on the
[employer] platform.
[2024-05-15 08:01] LABS: Absolute Neutrophils -Man Diff 13.3 10^3/uL (1.4-6.5); Band Neutrophils 16 % (0-3); Lymphocytes 6 % (20-51); Monocytes 7 % (2-9); Normal RBC Morphology Yes; Platelets Checked Yes; Segmented Neutrophils 71 % (42-75)
[2024-05-15 08:02] LABS: Total Cells Counted 100
[2024-05-15] MEDS: DECADRON 6 MG IV (08:08)
--- NOTE | 2024-05-15 08:30 | PTCARENOTE ---
Assumed care of pt at 0715 following shift report. Novel Respiratory Precautions maintained. Pt awake, nonverbal other than 'oi' and 'hmm'. Follows staff movement w/ eyes but makes no effort to communicate. Physical assessment completed. Pt remains
on [place] O2 50L/100% and Pox 96% w/ Resp Therapy titrating prn. No cough. Pt notably tachypneic w/ RR mid 30's. Purewick in use. Levophed gtt infusing at 2mcg/min (see worklist intervention for titrations), Repositioned, Oral and comfort care
provided. Safe environment maintained.
--- NOTE | 2024-05-15 08:46 | PHA.VAN.FU ---
Vancomycin Assessment / Plan
- Assessment
Renal Function: Stable
WBC's are: Trending Down
Concomitant Antimicrobials: remdesivir, doxycycline, piperacillin/tazobactam
- Dosing Plan
Continue: Vanc 500mg Q24H
- Monitoring Plan
No level(s) ordered at this time: consider levels in next few days
- Follow Up
Pharmacy will continue to follow.
Vancomycin Follow UP
- -
Patient Age: 89
Patient Sex: Female
Vancomycin Day #: 2
Indication: Pulmonary/Respiratory
Requesting Provider: Benigno Mejia
Pertinent Antimicrobial Allergies:
NKDA
Height / Weight:
Height 5 ft 2 in
Actual Weight 42.8 kg
IBW in k
Pertinent Past Medical History: BMI ~17, Home O2
- Vital Signs / Lab Results
Temp Pulse Resp BP Pulse Ox
98.2 F 94 34 77/68 95
05/15/24 07:38 05/15/24 06:00 05/15/24 06:00 05/15/24 06:00 05/15/24 08:25
Lab Results - Hematology
05/14/24 05/15/24
11:17 04:26
WBC 18.4 H 15.3 H
Band Neutrophils 4 H 16 H D
Lab Results - Chemistry
05/14/24 05/15/24
11:17 04:26
BUN 31 H 28 H
Creatinine 1.0 1.0
Estimated Creat Clear 27
Albumin 3.2 L 2.2 L
05/14/24 05/14/24 05/14/24
11:37 17:07 20:40
Lactic Acid 4.4 H* 5.3 H* 4.8 H*
05/15/24
00:56
Lactic Acid 3.5 H
Lab Results - Urine
05/14/24
11:41
Urine Nitrite (Reflex) Negative
Leukocyte Esterase Rfl Trace A
Ur Squamous Epith Cells >30
Microbiology Results
05/14/24 17:06 Nasal Screen MRSA (PCR) - Final
Nose Staph aureus MRSA
05/14/24 11:41 Legionella Urinary Antigen - Final
Urine Negative for Legionella pneumophila Serogroup 1 antigen.
A negative result does not rule out the possiblity of
Legionella infection due to other serogroups or species of
Legionella. Clinical correlation is recommended.
05/14/24 11:17 Influenza Types A & B (ROGER) - Final
Nasal Swab Negative for Influenza A & B, NAAT
Negative results must be combined with clinical observations
and patient history.
Nucleic Acid Amplification test (NAAT)performed on the
[employer] platform.
--- NOTE | 2024-05-15 08:49 | PTCARENOTE ---
Phone call received from pt's ecngmcyd-me-ong and pt's son. Updated on pt's present condition/plan of care. Questions answered. AKILA Torres' requesting that hospitalist call w/ update if possible ([phone])
--- NOTE | 2024-05-15 09:31 | W.CON.NEPH ---
Addendum entered and electronically signed by Drew Velasquez MD 05/15/24 09:48:
will bolus remainder of NSS (500ml), then run bicarb hypotonic IVF
check BMP later this afternoon
Original Note:
Consultation
-
Date/Time Consultation Requested: 05/15/2024 8 AM
Date/Time Consultation Performed: 05/15/2024 9:30 AM
Requesting Provider: Dr. Lopez
Performing Provider: Dr. Velasquez
Reason for Consultation: Hypernatremia
Medical History
-
Chief Complaint: Hypoxia
History of Present Illness:
This is a an 89-year-old Guyanese-speaking female who was sent to the emergency room from [facility] with hypoxia. She was recently diagnosed with COVID. She is otherwise nonverbal at this time. At the time of admission she was 88% on room air
and required high flow oxygen. She is also noted to be hypotensive requiring pressors initiation. We are asked to assist with management of her electrolyte issues with metabolic acidosis as well as hyponatremia at 154 today. Her lactic acid level
was elevated but has been improving with some benefit from her blood pressure. There is history of pulmonary embolism for which she is on anticoagulation. No other records were available. She is currently critically ill in the ICU in isolation
Past Medical History
Aortic aneurysm, anxiety, coronary disease, pleural effusion, dementia, pulmonary embolism, depression
Social History
Tobacco: Non-Smoker
Alcohol: None
Family History
Family History: Not Pertinent
Allergies / Home Medications
Allergy/AdvReac Type Severity Reaction Status Date / Time
No Known Allergies Allergy Verified 05/14/24 11:54
�Medication �Instructions �Recorded �Confirmed �Type
acetaminophen 325 mg tablet 650 mg PO Q4H PRN pain or 05/14/24 05/14/24 History
temp>nt=643X
amlodipine 5 mg tablet 5 mg PO DAILY hold for SBP<110 or 05/14/24 05/14/24 History
HR<55
apixaban 2.5 mg tablet (Eliquis) 2.5 mg PO Q12 Blood Clot 05/14/24 05/14/24 History
Prevention/Tx
dextromethorphan-guaifenesin 10 10 ml PO TID from 05/11/24 05/14/24 05/14/24 History
mg-100 mg/5 mL oral syrup -05/15/24
diclofenac sodium 1 % topical gel 0.5 g topical Q6HPRN PRN right hip 05/14/24 05/14/24 History
discomfort
magnesium hydroxide 400 mg/5 mL 30 ml PO HSPRN PRN no BM x 3 days 05/14/24 05/14/24 History
oral suspension (Milk of Magnesia)
megestrol 400 mg/10 mL (40 mg/mL) 400 mg PO DAILY appetite 05/14/24 05/14/24 History
oral suspension stimulation
metoprolol succinate 25 mg 25 mg PO DAILY hold for SBP<110 or 05/14/24 05/14/24 History
tablet,extended release 24 hr HR<55
Review of Systems
-
Unable to obtain full review of systems at this time due to: Patient Non Verbal
All other systems: Negative unless noted
Physical Exam
Vital Signs
Vital Signs
Temp Pulse Resp BP Pulse Ox
98.2 F 94 34 77/68 95
05/15/24 07:38 05/15/24 06:00 05/15/24 06:00 05/15/24 06:00 05/15/24 08:25
Lab Results
WBC 15.3 10^3/uL (4.8-10.8) H 05/15/24 04:26
RBC 5.17 10^6/uL (4.20-5.40) 05/15/24 04:26
Hgb 15.5 g/dL (12.0-16.0) 05/15/24 04:26
Hct 46.9 % (37.0-47.0) 05/15/24 04:26
Plt Count 222 10^3/uL (130-400) D 05/15/24 04:26
Sodium 154 mmol/L (135-145) H 05/15/24 04:26
Potassium 3.5 mmol/L (3.5-5.1) 05/15/24 04:26
Chloride 118 mmol/L (98-107) H 05/15/24 04:26
Carbon Dioxide 19 mmol/L (22-30) L 05/15/24 04:26
BUN 28 mg/dl (7-17) H 05/15/24 04:26
Creatinine 1.0 mg/dL (0.6-1.0) 05/15/24 04:26
eGFR 54.53 05/15/24 04:26
Glucose 113 mg/dl (70-99) H 05/15/24 04:26
Calcium 8.2 mg/dl (8.4-10.2) L 05/15/24 04:26
Albumin 2.2 g/dl (3.5-5.0) L 05/15/24 04:26
Laboratory Tests
05/14/24 05/14/24 05/15/24
11:17 11:41 00:56
Sodium 149 H
Lactic Acid 3.5 H
Ur Specific Norden 1.025
Physical Exam
Patient is awake alert not oriented and in no distress. Mood and affect could not be assessed, insight and judgment could not be assessed. Pupils are equal round and reactive to light, extraocular movements are intact, sclera were anicteric.
Hearing was normal, ears and nose are intact. Oropharynx was dry. Neck was supple with trachea midline and no thyromegaly. Heart was regular rate and rhythm without rubs. Lower extremities without edema. Lungs were clear to auscultation
bilaterally and with normal excursion. Abdomen was soft, nontender, with normal active bowel sounds, and no hepatosplenomegaly. Skin was without rash and with normal turgor.
Data Reviewed
-
Radiology: Image Personally Visualized and interpreted (Chest x-ray on 05/14/2024 by my reading shows left upper lobe consolidation)
Medical Tests (Nuc Med, Echo etc): Image Personally Visualized and interpreted (EKG on 05/14/2024 by my read shows sinus tachycardia with left anterior fascicular block, septal Q)
Labs: Labs Reviewed by me
Old Records: Requested
Assessment/Plan
-
Assessment
Sepsis
Pneumonia
Hypotension
COVID-positive
Hypernatremia
Metabolic acidosis
Lactic acidosis
Plan
Will use hypotonic IV fluids-will allow current saline bag to be used with concurrent D5W
Keep mean arterial pressure greater than 65
Follow lactate level
Check bladder scan with straight cath as needed
Serial BMP
Free water deficit approximately 2.6 L if trying to factor in current free water loss since admission as well
Critical care time spent 35 minutes
--- NOTE | 2024-05-15 09:32 | PTOTSP ---
Dysphagia Evaluation
Patient with high risk for reduced breathing/swallowing coordination and aspiration given current respiratory status (50 LPM HFNC and 70% FiO2, tachypnea with RR 30-40 at rest) combined with comorbidities (dementia, chronic respiratory failure, on a
baseline dysphagia diet). Patient with active refusal of attempts to wet lips and offer sparing PO for evaluation this date.
Recommend:
1. Consider temporary NPO given high aspiration risk
2. Aspiration Risk Hydration Protocol - hold given AMS, respiratory status
3. Medications - non-oral
4. Oral care 3x daily
5. Dysphagia tx pending patient/family goals of care
--- NOTE | 2024-05-15 09:45 | W.PN.HOSP.TC ---
Today's Communication/Plan
-
IV antibiotics
IV fluids.
Vasopressor.
Aspiration precautions.
Total Critical Care Time__55___ minutes. I was immediately available to the patient and staff. I personally examined, reviewed labs, diagnostic images/reports, interpretations, treatment plans, discussed patient care with other providers and
family or caregivers (if patient is unable to make decisions), entered orders as appropriate and documented the medical record.
Assessment / Plan
Assessment / Plan
Impression:
Severe sepsis secondary to bacterial pneumonia.
Acute on chronic hypoxic respiratory failure secondary to above
Gram-negative bacteremia
COVID-19 +4 days prior to admission.
Suspect severe aspiration syndrome.
Mild elevation of transaminases
Metabolic acidosis with elevated lactic acid level.
Severe dehydration with hypernatremia.
Septic shock with hypotension not responding to IV fluids, requiring vasopressor support
Severe protein calorie malnutrition with BMI of 17.
Conditions prior to admission:
Aortic aneurysm.
CAD.
Essential hypertension
Chronic respiratory failure on O2 supplementations at 2 L.
Recent PE on Eliquis.
History of pleural effusion.
Scoliosis.
Ventral hernia.
Depression/anxiety.
Chronic ambulatory dysfunction.
jail resident
Plan:
Severe sepsis most likely secondary to bacterial pneumonia
Chest x-ray with left lower lobe infiltrate
Suspect severe aspiration syndrome.
Blood culture preliminary gram-negative 1 out of 2 suggesting aspiration pneumonia.
COVID-19 +4 days prior to admission. Unvaccinated
Respiratory status remains tenuous while on high flow oxygen supplementation with increased work of breathing.
Continue broad-spectrum antibiotics: Vancomycin, cefepime, doxycycline.
Continue remdesivir
Continue corticosteroids/Decadron
Septic shock.
Metabolic acidosis with elevated lactic acid level.
Severe dehydration with hypernatremia
Change IV fluids to hypotonic, alkalinized. Follow serial BMP and lactic acid level
History of recent pulmonary embolism
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
Given current n.p.o. status transition to Lovenox weight-based
.
CAD
Essential hypertension.
Aortic aneurysm
Preadmission regimen amlodipine, metoprolol, currently on hold due to severe hypotension
CODE STATUS
Goals of care discussion with POA patient's son Bradford on 05/15. Patient is 89 years old female with chronic hypoxic respiratory failure, failure to thrive, bedbound shelter resident presented with severe sepsis, septic shock, acute
respiratory failure, severe dehydration with metabolic acidosis with impending multiple organ failure. Remains high risk for progression and decompensation not limited to cardiorespiratory arrest. Patient's son completely understand situation and
wishes not to employ any heroic measures including CPR or invasive ventilation.
DNR.
DVT prophylaxis/Lovenox.
Anticipated Discharge: > 48 hours
Subjective/Interval History
-
Date of Service: May 15, 2024
Objective Data
-
Labs:
Laboratory Results
05/15/24
04:26
WBC 15.3 H
Hgb 15.5
Hct 46.9
Plt Count 222 D
PT 18.3 H
INR 1.50
Sodium 154 H
Potassium 3.5
Chloride 118 H
Carbon Dioxide 19 L
BUN 28 H
Creatinine 1.0
Glucose 113 H
Calcium 8.2 L
Total Bilirubin 1.3
AST 64 H
ALT 35
Alkaline Phosphatase 66
Vital Signs:
Vital Signs
Temp Pulse Resp BP Pulse Ox
98.2 F 94 34 77/68 95
05/15/24 07:38 05/15/24 06:00 05/15/24 06:00 05/15/24 06:00 05/15/24 08:25
I&O
05/14/24 05/15/24 05/16/24
06:59 06:59 06:59
Intake Total
Balance
Physical Exam
-
General: Well Developed and No Apparent Distress
HEENT: Normocephalic, Atraumatic and Moist Mucous Membranes
Respiratory: Clear to Auscultation
Cardiac: Regular Rhythm and S1/S2; Negative Murmur, Rub or Gallop
GI: Soft, Nontender, Nondistended and Normal Bowel Sounds; Negative Organomegaly
Rectal: Deferred by Provider
Musculoskeletal: No Clubbing, No Cyanosis and No Edema
Skin: Negative Rash
Neuro: Nonfocal/Grossly Intact
--- NOTE | 2024-05-15 10:55 | W.PN.INTV ---
Today's Communication / Plan
Recommendations
*TODAY - Monday05/15/2024*
-Rapid-Onset Pseudo-Dementia Vs. Dementia of Unknown Etiology ()
Frequent Neuro Checks
Delirium Preventive Measures
-COVID (+) Patient (Previosuly Un-Vaccinated)
Currently on Rendesivir (Day 2/) / Saturating Well On High-Flow O2
-Left-LL Associated Lobar Pneumonia On Imaging / MRSA (+) / Gram-Negative Bacteremia (Currently On Broad-Spectrum ABX's)
Continue Vanco & Zosyn
Continue Doxycycline (Day 2) (MRSA & Atypicals Coverage)
-Recent PMHx Of PE's + DVT Ppx (Currently On Therapeutic Levonox Dose)
Levonox 40mg SQ / Q12hrs
-GI Ppx
Assessment
-
89-year-old British speaking female with a history of severe dementia, aortic aneurysm, anxiety, CAD, COPD, chronic respiratory failure-on chronic 2 L of oxygen, pleural effusions, depression, pulmonary embolism presented from [facility]
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
Respiratory failure-acute on top of chronic hypoxemic respiratory failure
Pneumonia-[facility] acquired
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
Gram-negative bacteremia
UTI
Aspiration risk
Leukocytosis
Lymphopenia
Polycythemia
Hyponatremia
Metabolic acidosis
Lactic acidosis
Hyperglycemia
Transaminitis
Protein calorie malnutrition-BMI 17
DNR
Conditions present prior to admission:
Aortic aneurysm.
Anxiety.
CAD.
Chronic respiratory failure on 2 L O2.
Former smoker-greater than [id number]-quit January 2024
Pleural effusions.
Severe dementia
History of PE.
Depression.
Scoliosis
Ventral hernia
Plan
Radiographic appearance consistent with lobar probable bacterial pneumonia-does not have the appearance of diffuse COVID-pneumonia
Reportedly patient is unvaccinated and unclear whether she had COVID infection before-trying to establish previous long-term immunity
Remains critically ill on high flow oxygen with marginal saturations
Continue supplemental oxygen-attempt to wean
NIV if needed
Inhalers if needed-currently not bronchospastic
Follow chest x-ray
Currently continues to be a full code-intubated mechanically ventilated if necessary-Hope to avoid establish CODE STATUS illness severely demented 89-year-old [facility] patient
Incentive spirometry if able
Aspiration precautions per protocol
Speech therapy evaluation if needed
Isolation per protocol
Negative pressure room
Prone position if needed to help with oxygenation
Cultures thus far reviewed
Sputum culture-unable to produce
MRSA screen positive
Urine Legionella negative
Follow radiographically
Monitor leukocytosis and temperature curve
Intravenous fluids
Intravenous fluids
Norepinephrine if needed and then vasopressin if needed
Dexamethasone initiated per protocol
Remdesivir also continues per protocol
Paxlovid considered, however, she is now hospitalized on high flow and there is a little data on this population with Paxlovid which I believe is a better antiviral
Monitor hemoglobin and polycythemia-suspect some hemoconcentration and chronic hypoxemia leading to secondary polycythemia-with hydration now 15.5
Monitor blood sugar
Insulin supplementation as needed especially in light of steroid initiation
Monitor LFTs
Monitor serum sodium
Monitor serum bicarb
Increase free water
Nephrology consultation requested
DVT prophylaxis
Nutrition
Early mobilization
Spoke with primary team and they will work on goals of care including DNR status
Dr. Lopez spoke at length in person to son and [id number]-05/15/2024 explained the grave situation, declining, potential need for intubation, CPR, defibrillation and what the patient would have wanted-after lengthy conversation explaining
potential futile care if we progress that far, potential for harming the patient with chest compressions and shocking as well as uncomfortable ventilator he continues to want full support-we will continue to discuss this with him and hopefully make
her supportive care but short of intubation/CPR and shocking-for now she is a full code
[id number] phone [phone] and daughter-involvement Ernesto [phone]
Critical care statement: A total of 45 minutes of critical care time was provided for this patient today. This includes management of unstable vital signs, evaluation of the patient at bedside, reviewing the patient's pertinent medical records
including radiographs, management of respiratory failure, microbiology, laboratory evaluations, and discussion with primary team, consultants, pharmacy, nutrition, physical therapy, case management, charge nurse, critical care nursing, and
respiratory therapy.
Diagnostic data:
Chest x-ray 05/14/2024-left upper lobe consolidation
Subjective Dataa
Subjective Data
Date of Service:
Date of Service: May 15, 2024
Pt was seen and evaluated this AM at bedside with attending physician and the critical care team.
In NAD
Saturating well at this time on High-Flow O2
Hemodynamically Stable
NO Acute Events O/N
NO Complains, besides pt consciously Denying anything by Mouth
(Pt on 2.5mg Eliquis PO At Home) *On Therapeutic Levonox Dose
{Rapid-Onset Pseudo-Dementia Vs. Dementia of Unknown Etiology ()
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
Objective Data
Data Reviewed
Vital Signs / I&O / Oxygen:
Vital Signs
Temp Pulse Resp BP Pulse Ox
36.8 C 94 34 77/68 96
05/15/24 07:38 05/15/24 06:00 05/15/24 06:00 05/15/24 06:00 05/15/24 10:40
Intake and Output
05/14/24 05/15/24 05/16/24
06:59 06:59 06:59
Intake Total 1837.5 / 1837.5
Balance 7.5 / 1836.5
SaO2 96
Nasal Cannula flow liters per 50
minute
Physical Exam
General: Respiratory Distress (Mild) and Comfortable
HEENT: Normocephalic, Anicteric and Moist Mucous Membranes
Cardiovascular: Regular Rhythm and Murmur
Respiratory: Wheeze (n), Crackles (Left greater than right), Rhonchi, Non-Labored Respirations, Accessory Resp Muscle Use (n) and Stridor (n)
GI: Soft, Non Distended and Non Tender
Neurology: Awake, Alert and No Motor Deficits
Skin: Warm, Good Color, Cyanosis (n), Jaundice (n) and Rash
Labs/Micro/Reports
Lab Data
05/15/24 04:26
Laboratory Results
05/14/24 05/15/24
12:05 04:26
PT 18.3 H
INR 1.50
pH Cancelled
pCO2 Cancelled
pO2 Cancelled
HCO3 Cancelled
O2 Delivery Level Cancelled
Microbiology
05/14/24 11:41 Urine Urine Culture - Final
05/14/24 11:38 Blood/Venous Blood Culture - Preliminary
Positive culture in progress
05/14/24 11:38 Blood/Venous Gram Stain - Preliminary
05/14/24 11:37 Blood/Venous Blood Culture - Preliminary
Positive culture in progress
05/14/24 11:37 Blood/Venous Gram Stain - Preliminary
05/14/24 17:06 Nose Nasal Screen MRSA (PCR) - Final
Staph aureus MRSA
05/14/24 11:41 Urine Legionella Urinary Antigen - Final
Negative for Legionella pneumophila Serogroup 1 antigen.
A negative result does not rule out the possiblity of
Legionella infection due to other serogroups or species of
Legionella. Clinical correlation is recommended.
05/14/24 11:17 Nasal Swab Influenza Types A & B (ROGER) - Final
Negative for Influenza A & B, NAAT
Negative results must be combined with clinical observations
and patient history.
Nucleic Acid Amplification test (NAAT)performed on the
[employer] platform.
--- NOTE | 2024-05-15 11:27 | CM ---
CM following re: discharge planning.
Discussed in Rounds, reviewed pt's chart.
Pt is an 89 year old Mauritian speaking female, admitted with primary dx od Sepsis, COVID 19.
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
CM spoke to [facility] liaison and she confirmed that pt is a LTC resident, on 15 day bed hold and pt requires total care, Hoer lift.
PCP: Дмитрий Frankel
Pharmacy: [facility]
D/C plan: return back to [facility] for a LTC
CM will follow with discharge plan updates as hospitalization progresses
[2024-05-15] MEDS: LOVENOX 40 MG SC ×2 (11:34→23:24)
[2024-05-15] MEDS: NSS (PRESERVATIVE FREE) 10 ML IV (11:34)
[2024-05-15] MEDS: SODIUM BICARBONATE 1050 MEQ IV ×2 (11:35→22:28)
[2024-05-15] MEDS: PROTONIX IV 40 MG IV (11:35)
--- NOTE | 2024-05-15 12:00 | PTCARENOTE ---
Pt continues to rest quietly in bed- occasional restless movement of upper extremities- NAD. No changes from previous assessment findings.
[2024-05-15] MEDS: VEKLURY 250 MG IV (12:37)
[2024-05-15 12:51] LABS: Lactic Acid 4.2 mmol/L (0.7-2.0)
--- NOTE | 2024-05-15 13:55 | PTCARENOTE ---
Dr Bryan notified of lactic acid 4.2 and updated on increased need for Levophed. No new orders recieved at this time.
--- NOTE | 2024-05-15 16:00 | PTCARENOTE ---
Titrating Levophed gtt as documented. No changes noted from previous assessment findings.
[2024-05-15 16:44] LABS: Blood Urea Nitrogen 29 mg/dl (7-17); Calcium 8.1 mg/dl (8.4-10.2); Carbon Dioxide 16 mmol/L (22-30); Chloride 119 mmol/L (98-107); Estimated Creatinine Clearance 33 ml/min; Glucose 147 mg/dl (70-99); Lactic Acid 4.3 mmol/L (0.7-2.0); Sodium 152 mmol/L (135-145); eGFR > 60.00
--- NOTE | 2024-05-15 16:56 | PTCARENOTE ---
TT to Dr Eva ackerman/ results of BMP. Order for KCl replacement from Dr Lopez noted.
[2024-05-15] MEDS: KCL 270 MEQ IV (17:31)
--- NOTE | 2024-05-15 17:40 | PTCARENOTE ---
HCO3 gtt increased to 160ml/hr per order.
--- NOTE | 2024-05-15 19:29 | PTCARENOTE ---
Received pt via handoff. Pt confused, not oriented to person, place or time, afebrile. Able to lift upper extremities but not lower. Very tense and weak. Sinus tachy, pulse weak on palpation, no edema. Pt on 50L 60% highflow, lung sounds diminished
with crackles at the bases. Incontinent of urine and stool. Hypoactive bowel sounds in all 4Q. Purewick place. Skin is pale and warm. Gtts running see flowsheet. Hygiene performed.
[2024-05-15 23:00] LABS: Lactic Acid 2.9 mmol/L (0.7-2.0)
[2024-05-15 23:42] LABS: Blood Urea Nitrogen 28 mg/dl (7-17); Calcium 7.3 mg/dl (8.4-10.2); Carbon Dioxide 18 mmol/L (22-30); Chloride 113 mmol/L (98-107); Estimated Creatinine Clearance 38 ml/min; Glucose 323 mg/dl (70-99); Sodium 142 mmol/L (135-145); eGFR > 60.00
[2024-05-16] VITALS (69 sets, daily range): BP systolic 81–159; BP diastolic 51–126; BMI 17.2
[2024-05-16] MEDS: LEVOPHED 250 IV (00:10)
--- NOTE | 2024-05-16 00:46 | PTCARENOTE ---
All systems reassessed. Labs drawn, hygiene performed.
[2024-05-16 03:45] LABS: Hematocrit 38.4 % (37.0-47.0); Hemoglobin 13.1 g/dL (12.0-16.0); Mean Corp Hgb Conc. 34.1 g/dL (33.0-37.0); Mean Corpuscular Hgb 29.7 pg (27.0-31.0); Mean Corpuscular Volume 87.1 fL (81.0-99.0); Mean Platelet Volume 12.4 fL (7.4-10.4); Platelet Count 194 10^3/uL (130-400); Red Blood Cell Count 4.41 10^6/uL (4.20-5.40); Red Cell Dist. Width 15.5 % (11.5-14.5); White Blood Cell Count 15.4 10^3/uL (4.8-10.8)
--- NOTE | 2024-05-16 03:51 | PTCARENOTE ---
All systems reassessed, labs drawn, hygiene performed.
[2024-05-16 04:07] LABS: AST (SGOT) 52 U/L (14-36); Albumin 1.8 g/dl (3.5-5.0); Alkaline Phosphatase 59 U/L (38-126); Blood Urea Nitrogen 26 mg/dl (7-17); Calcium 7.5 mg/dl (8.4-10.2); Carbon Dioxide 21 mmol/L (22-30); Chloride 109 mmol/L (98-107); Estimated Creatinine Clearance 38 ml/min; Glucose 284 mg/dl (70-99); Sodium 142 mmol/L (135-145); Total Protein 4.3 g/dl (6.3-8.2); eGFR > 60.00
[2024-05-16] MEDS: SODIUM BICARBONATE 1050 MEQ IV ×3 (04:17→22:03)
[2024-05-16 04:19] LABS: ALT (SGPT) 44 U/L (0-35)
[2024-05-16 04:24] LABS: Lactic Acid 4.9 mmol/L (0.7-2.0)
[2024-05-16] MEDS: VIBRAMYCIN 260 MG IV (05:01)
[2024-05-16] MEDS: ZOSYN 50 IV ×2 (05:01→11:30)
[2024-05-16] MEDS: KCL 270 MEQ IV ×2 (05:02→10:53)
[2024-05-16] MEDS: VANCOCIN HCL 500 MG 100 IV (05:02)
[2024-05-16 05:26] LABS: Absolute Neutrophils -Man Diff 14.4 10^3/uL (1.4-6.5); Band Neutrophils 12 % (0-3); Lymphocytes 3 % (20-51); Monocytes 3 % (2-9); Platelets Checked Yes; Segmented Neutrophils 82 % (42-75)
[2024-05-16 05:27] LABS: Anisocytosis 1+; Normal RBC Morphology No; Ovalocytes 1+; Polychromasia Occasional; Total Cells Counted 100; Toxic Granulation 1+
[2024-05-16 05:28] LABS: Burr Cells 1+; Target Cells Occasional
--- NOTE | 2024-05-16 07:44 | W.PN.INTV ---
Today's Communication / Plan
Recommendations
Wean FiO2
Increase activity
Continue antibiotics
Isolation per protocol
Dexamethasone and remdesivir per protocol
If norepinephrine weaned then transfer to telemetry-pulmonary will follow briefly
Assessment
-
89-year-old Lithuanian speaking female with a history of severe dementia, aortic aneurysm, anxiety, CAD, COPD, chronic respiratory failure-on chronic 2 L of oxygen, pleural effusions, depression, pulmonary embolism presented from [facility]
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
Respiratory failure-acute on top of chronic hypoxemic respiratory failure
Pneumonia-detention acquired
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
Gram-negative bacteremia
UTI
Aspiration risk
Leukocytosis
Lymphopenia
Polycythemia
Hyponatremia
Metabolic acidosis
Lactic acidosis
Hyperglycemia
Transaminitis
Protein calorie malnutrition-BMI 17
DNR
Conditions present prior to admission:
Aortic aneurysm.
Anxiety.
CAD.
Chronic respiratory failure on 2 L O2.
Former smoker-greater than 21-[id number]-quit January 2024
Pleural effusions.
Severe dementia
History of PE.
Depression.
Scoliosis
Ventral hernia
Plan
Radiographic appearance consistent with lobar probable bacterial pneumonia-does not have the appearance of diffuse COVID-pneumonia
Reportedly patient is unvaccinated and unclear whether she had COVID infection before-trying to establish previous long-term immunity
Respiratory status slowly improving
Supplemental oxygen as needed-now weaned to mid flow from high flow-continue to wean-reviewed with CLIENT ACCOUNT ASSISTANT
NIV has not been needed
Inhalers if needed-currently not bronchospastic
Chest x-ray 05/16/2024-unchanged opacification suggestive of pneumonia, no significant change from previous
Incentive spirometry if able
Aspiration precautions per protocol
Speech therapy evaluation
Isolation per protocol
Negative pressure room
Prone position if needed to help with oxygenation
Cultures reviewed
Sputum culture-unable to produce
MRSA screen positive
Urine Legionella negative
Follow radiographically
Monitor leukocytosis and temperature curve
Decrease IV fluids
Norepinephrine wean
Dexamethasone initiated per protocol
Remdesivir also continues per protocol
Monitor hemoglobin and polycythemia-suspect some hemoconcentration and chronic hypoxemia leading to secondary polycythemia-with hydration 15.5 and now 13.1
Monitor blood sugar
Insulin supplementation as needed especially in light of steroid initiation
Monitor serum sodium-improved and now 142
Monitor serum bicarb
Increase free water
Nephrology consultation noted-correspondence reviewed-managing IV fluids
If able to be weaned off norepinephrine then transfer out of ICU to telemetry-pulmonary will follow briefly
DVT prophylaxis-was on Eliquis 2.5 mg twice daily for pulmonary embolism-changed to Lovenox 40 mg subcu every 12 hours has not taking oral medications
Nutrition
Physical therapy
Family conversations:
Dr. Lopez spoke at length in person to son and [id number]-05/15/2024 explained the grave situation, declining, potential need for intubation, CPR, defibrillation and what the patient would have wanted-after lengthy conversation explaining
potential futile care if we progress that far, potential for harming the patient with chest compressions and shocking as well as uncomfortable ventilator he continues to want full support-we will continue to discuss this with him and hopefully make
her supportive care but short of intubation/CPR and shocking-for now she is a full code
[place]-tfbu phone [phone] and daughter-involvement Ernesto [phone]
Critical care statement: A total of 40 minutes of critical care time was provided for this patient today. This includes management of unstable vital signs, evaluation of the patient at bedside, reviewing the patient's pertinent medical records
including radiographs, pressor management, management of respiratory failure, microbiology, laboratory evaluations, and discussion with primary team, consultants, pharmacy, nutrition, physical therapy, case management, charge nurse, critical care
nursing, and respiratory therapy.
Diagnostic data:
Chest x-ray 05/14/2024-left upper lobe consolidation
Subjective Dataa
Subjective Data
Date of Service:
Date of Service: May 16, 2024
Chief Complaint: [id number] Consultant Follow Up and Pulmonary Follow Up
Subjective:
Respiratory status slowly improving-FiO2 requirements have decreased, nonverbal, review of systems unobtainable
Review of Systems
General: Other (Per HPI )
Objective Data
Data Reviewed
Vital Signs / I&O / Oxygen:
Vital Signs
Temp Pulse Resp BP Pulse Ox
98.2 F 79 28 97/72 98
05/16/24 05:07 05/16/24 05:45 05/16/24 05:45 05/16/24 05:30 05/16/24 05:45
Intake and Output
05/15/24 05/16/24 05/17/24
06:59 06:59 06:59
Intake Total 1837.5 / 1925.0 4854.0 / 4854.0
Output Total 460 / 460
Balance 1837.5 / 1925.0 4394.0 / 4394.0
SaO2 98
Nasal Cannula flow liters per 50
minute
Physical Exam
General: Respiratory Distress (Mild) and Comfortable
HEENT: Normocephalic, Anicteric and Moist Mucous Membranes
Cardiovascular: Regular Rhythm and Murmur
Respiratory: Wheeze (n), Crackles (Left greater than right), Rhonchi, Non-Labored Respirations, Accessory Resp Muscle Use (n) and Stridor (n)
GI: Soft, Non Distended and Non Tender
Neurology: Awake, Alert and No Motor Deficits
Skin: Warm, Good Color, Cyanosis (n), Jaundice (n) and Rash
Labs/Micro/Reports
Lab Data
05/16/24 03:29
05/16/24 03:29
Microbiology
05/14/24 11:37 Blood/Venous Blood Culture - Preliminary
Pseudomonas aeruginosa
05/14/24 11:37 Blood/Venous Gram Stain - Preliminary
05/14/24 11:41 Urine Urine Culture - Final
05/14/24 11:38 Blood/Venous Blood Culture - Preliminary
Positive culture in progress
05/14/24 11:38 Blood/Venous Gram Stain - Preliminary
05/14/24 17:06 Nose Nasal Screen MRSA (PCR) - Final
Staph aureus MRSA
05/14/24 11:41 Urine Legionella Urinary Antigen - Final
Negative for Legionella pneumophila Serogroup 1 antigen.
A negative result does not rule out the possiblity of
Legionella infection due to other serogroups or species of
Legionella. Clinical correlation is recommended.
05/14/24 11:17 Nasal Swab Influenza Types A & B (ROGER) - Final
Negative for Influenza A & B, NAAT
Negative results must be combined with clinical observations
and patient history.
Nucleic Acid Amplification test (NAAT)performed on the
[employer] platform.
--- NOTE | 2024-05-16 08:40 | PHA.VAN.FU ---
Vancomycin Assessment / Plan
- Assessment
Renal Function: Stable
WBC's are: Stable
Concomitant Antimicrobials: piperacillin/tazobactam, remdesivir, doxycycline
- Dosing Plan
Continue: Vanc 500mg Q24H
- Monitoring Plan
No level(s) ordered at this time: consider levels in next few days
- Follow Up
Pharmacy will continue to follow.
Vancomycin Follow UP
- -
Patient Age: 89
Patient Sex: Female
Vancomycin Day #: 3
Indication: Pulmonary/Respiratory
Requesting Provider: Benigno Mejia
Pertinent Antimicrobial Allergies:
NKDA
Height / Weight:
Height 5 ft 2 in
Actual Weight 42.6 kg
IBW in k
Pertinent Past Medical History: BMI ~17, Home O2
- Vital Signs / Lab Results
Temp Pulse Resp BP Pulse Ox
97.5 F 79 28 97/72 98
05/16/24 08:00 05/16/24 05:45 05/16/24 05:45 05/16/24 05:30 05/16/24 05:45
Lab Results - Hematology
05/14/24 05/15/24 05/16/24
11:17 04:26 03:29
WBC 18.4 H 15.3 H 15.4 H
Band Neutrophils 4 H 16 H D 12 H
Lab Results - Chemistry
05/14/24 05/15/24 05/15/24
11:17 04:26 16:07
BUN 31 H 28 H 29 H
Creatinine 1.0 1.0 0.8
Estimated Creat Clear 27 33
Albumin 3.2 L 2.2 L
05/15/24 05/15/24 05/16/24
22:40 23:13 03:29
BUN Cancelled 28 H 26 H
Creatinine Cancelled 0.7 0.7
Estimated Creat Clear Cancelled 38 38
Albumin 1.8 L
05/14/24 05/14/24 05/14/24
11:37 17:07 20:40
Lactic Acid 4.4 H* 5.3 H* 4.8 H*
05/15/24 05/15/24 05/15/24
00:56 08:22 12:05
Lactic Acid 3.5 H Cancelled 4.2 H*
05/15/24 05/15/24 05/16/24
16:07 22:40 03:29
Lactic Acid 4.3 H* 2.9 H 4.9 H*
Microbiology Results
05/14/24 11:37 Blood Culture - Preliminary
Blood/Venous Pseudomonas aeruginosa
Gram Stain - Preliminary
05/14/24 11:41 Urine Culture - Final
Urine
05/14/24 11:38 Blood Culture - Preliminary
Blood/Venous Positive culture in progress
Gram Stain - Preliminary
05/14/24 17:06 Nasal Screen MRSA (PCR) - Final
Nose Staph aureus MRSA
05/14/24 11:41 Legionella Urinary Antigen - Final
Urine Negative for Legionella pneumophila Serogroup 1 antigen.
A negative result does not rule out the possiblity of
Legionella infection due to other serogroups or species of
Legionella. Clinical correlation is recommended.
05/14/24 11:17 Influenza Types A & B (ROGER) - Final
Nasal Swab Negative for Influenza A & B, NAAT
Negative results must be combined with clinical observations
and patient history.
Nucleic Acid Amplification test (NAAT)performed on the
[employer] platform.
[2024-05-16] MEDS: NSS (PRESERVATIVE FREE) 10 ML IV (08:51)
[2024-05-16] MEDS: PROTONIX IV 40 MG IV (08:51)
[2024-05-16] MEDS: DECADRON 6 MG IV (08:51)
[2024-05-16] MEDS: LOVENOX 40 MG SC ×2 (08:51→19:59)
--- NOTE | 2024-05-16 08:56 | W.PN.NEPH.PH ---
Today's Communication / Plan
-
IVF
Assessment/Plan
-
Assessment
Sepsis
Pneumonia
Hypotension
COVID-positive
Hypernatremia
Metabolic acidosis
Lactic acidosis
Plan
IVF adjusted
follow BMP
replete K
check cortisol
check magnesium
keep MAP>65
critical care time 31 minutes
-
-
Date of Service: May 16, 2024
CC / HPI / ROS
-
Chief Complaint:
hypernatremia
History of Present Illness:
Na improved with hypotonic IVF
K low still 3
acidosis improving
BP low
critically ill in ICU on pressors
remdesavir for COVID
Review of Systems:
noncommunicative
Labs
-
Labs:
WBC 15.4 10^3/uL (4.8-10.8) H 05/16/24 03:29
RBC 4.41 10^6/uL (4.20-5.40) 05/16/24 03:29
Hgb 13.1 g/dL (12.0-16.0) 05/16/24 03:29
Hct 38.4 % (37.0-47.0) 05/16/24 03:29
Plt Count 194 10^3/uL (130-400) 05/16/24 03:29
Sodium 142 mmol/L (135-145) 05/16/24 03:29
Potassium 3.0 mmol/L (3.5-5.1) L 05/16/24 03:29
Chloride 109 mmol/L (98-107) H 05/16/24 03:29
Carbon Dioxide 21 mmol/L (22-30) L 05/16/24 03:29
BUN 26 mg/dl (7-17) H 05/16/24 03:29
Creatinine 0.7 mg/dL (0.6-1.0) 05/16/24 03:29
eGFR > 60.00 05/16/24 03:29
Glucose 284 mg/dl (70-99) H 05/16/24 03:29
Calcium 7.5 mg/dl (8.4-10.2) L 05/16/24 03:29
Albumin 1.8 g/dl (3.5-5.0) L 05/16/24 03:29
Physical Exam
-
Vital Signs:
Vital Signs
Temp Pulse Resp BP Pulse Ox
97.5 F 79 28 97/72 98
05/16/24 08:00 05/16/24 05:45 05/16/24 05:45 05/16/24 05:30 05/16/24 05:45
Cardiovascular:: Regular rate and rhythm
Respiratory:: Bilateral: Coarse
Lung Excursion:: Normal
Abdomen:: Nontender and Soft
Bowel Sounds:: Normal
Extremity Edema:: None: Bilateral:
[2024-05-16 10:02] LABS: Lactic Acid 5.2 mmol/L (0.7-2.0)
[2024-05-16] MEDS: NOVOLOG FLEXPEN-LOW RESISTANCE 1 UNITS SC (10:51)
--- NOTE | 2024-05-16 11:00 | PTCARENOTE ---
swelling noted to left arm below 18g lac. levo was infusing through that int at one time. IV removed. VAT verbally made aware. +pulses.
[2024-05-16 11:03] LABS: Glucose - Point of Care 192 mg/dl (70-99)
[2024-05-16] MEDS: SODIUM BICARBONATE IV (11:10)
--- NOTE | 2024-05-16 11:17 | W.PN.HOSP.TC ---
Today's Communication/Plan
-
Oxygenation improved
Off IV pressor.
Blood culture positive for Pseudomonas.
Continue antibiotics per
ID consult.
IV fluids adjusted.
Speech and swallow evaluation.
Continue Lovenox therapeutic dose while off Eliquis
Remains critically ill
Total Critical Care Time__55___ minutes. I was immediately available to the patient and staff. I personally examined, reviewed labs, diagnostic images/reports, interpretations, treatment plans, discussed patient care with other providers and
family or caregivers (if patient is unable to make decisions), entered orders as appropriate and documented the medical record.
Family updated
Assessment / Plan
Assessment / Plan
Impression:
Severe sepsis secondary to bacterial pneumonia.
Acute on chronic hypoxic respiratory failure secondary to above
Pseudomonas bacteremia
COVID-19 +4 days prior to admission.
Suspect severe aspiration syndrome.
Mild elevation of transaminases
Metabolic acidosis with elevated lactic acid level.
Severe dehydration with hypernatremia.
Septic shock with hypotension not responding to IV fluids, requiring vasopressor support
Severe protein calorie malnutrition with BMI of 17.
Conditions prior to admission:
Aortic aneurysm.
CAD.
Essential hypertension
Chronic respiratory failure on O2 supplementations at 2 L.
Recent PE on Eliquis.
History of pleural effusion.
Scoliosis.
Ventral hernia.
Depression/anxiety.
Chronic ambulatory dysfunction.
[facility] resident
Plan:
Severe sepsis most likely secondary to bacterial pneumonia
Chest x-ray with left lower lobe infiltrate
Aspiration pneumonia most likely with underlying severe aspiration syndrome secondary to dementia.
Blood culture positive with Pseudomonas.
MRSA screen positive
COVID-19 +4 days prior to admission. Not vaccinated
Respiratory status improved, was able to wean oxygen down to 6 L of mid flow.
Continue broad-spectrum antibiotics: Vancomycin, cefepime, doxycycline.
Continue remdesivir
Continue corticosteroids/Decadron
Septic shock.
Metabolic acidosis with elevated lactic acid level.
Severe dehydration with hypernatremia
Lactic acid remains elevated, although BP improved and currently off pressor.
IV fluids adjusted
History of recent pulmonary embolism
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
Given current n.p.o. status transition to Lovenox weight-based
.
CAD
Essential hypertension.
Aortic aneurysm
Preadmission regimen amlodipine, metoprolol, currently on hold due to severe hypotension
CODE STATUS
05/15: Goals of care discussion with POA patient's son Bradford on 05/15. Patient is 89 years old female with chronic hypoxic respiratory failure, failure to thrive, bedbound senior living resident presented with severe sepsis, septic shock, acute
respiratory failure, severe dehydration with metabolic acidosis with impending multiple organ failure. Remains high risk for progression and decompensation not limited to cardiorespiratory arrest. Patient's son completely understand situation and
wishes not to employ any heroic measures including CPR or invasive ventilation.
DNR.
DVT prophylaxis/Lovenox.
Anticipated Discharge: > 48 hours
Subjective/Interval History
-
Date of Service: May 16, 2024
Objective Data
-
Labs:
Laboratory Results
05/15/24 05/16/24 05/16/24
23:13 03:29 13:00
WBC 15.4 H
Hgb 13.1
Hct 38.4
Plt Count 194
Sodium 142 D 142 Pending
Potassium 3.0 L 3.0 L Pending
Chloride 113 H 109 H Pending
Carbon Dioxide 18 L 21 L Pending
BUN 28 H 26 H Pending
Creatinine 0.7 0.7 Pending
Glucose 323 H 284 H Pending
Calcium 7.3 L 7.5 L Pending
Total Bilirubin 1.0
AST 52 H
ALT 44 H
Alkaline Phosphatase 59
Vital Signs:
Vital Signs
Temp Pulse Resp BP Pulse Ox
97.5 F 79 28 97/72 98
05/16/24 08:00 05/16/24 05:45 05/16/24 05:45 05/16/24 05:30 05/16/24 05:45
I&O
05/15/24 05/16/24 05/17/24
06:59 06:59 06:59
Intake Total 1837.5 / 1925.0 4854.0 / 5040.0 826 / 826
Output Total 460 / 460
Balance 1837.5 / 1925.0 4394.0 / 4580.0 826 / 826
Physical Exam
-
General: Well Developed and No Apparent Distress
HEENT: Normocephalic, Atraumatic and Moist Mucous Membranes
Respiratory: Clear to Auscultation
Cardiac: Regular Rhythm and S1/S2; Negative Murmur, Rub or Gallop
GI: Soft, Nontender, Nondistended and Normal Bowel Sounds; Negative Organomegaly
Rectal: Deferred by Provider
Musculoskeletal: No Clubbing, No Cyanosis and No Edema
Skin: Negative Rash
Neuro: Nonfocal/Grossly Intact
--- NOTE | 2024-05-16 11:46 | PTCARENOTE ---
report received. oriented to self only. Citizen [place] speaking but nonverbal. levo was at 6mcg/min. levo decreased and turned off @ 0930 (see worklist.) ivf switched to 1/2nssw/50meq of bicarb @ 100cc/hr. k rider infusing. see mar for details of
medications. pt received on 6lmidflow. pt now on room air. saturation 92%. Book Packer and hospitalist aware.
[2024-05-16] MEDS: VEKLURY 250 MG IV (12:55)
[2024-05-16 14:20] LABS: Blood Urea Nitrogen 22 mg/dl (7-17); Calcium 7.5 mg/dl (8.4-10.2); Carbon Dioxide 26 mmol/L (22-30); Chloride 102 mmol/L (98-107); Estimated Creatinine Clearance 44 ml/min; Glucose 173 mg/dl (70-99); Magnesium 1.4 mg/dl (1.6-2.3); Potassium 4.7 mmol/L (3.5-5.1); Sodium 139 mmol/L (135-145); eGFR > 60.00
--- NOTE | 2024-05-16 15:02 | CM ---
M following re: discharge planning.
Discussed in Rounds, reviewed pt's chart. Pt is on room air
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
D/C plan: return back to [facility] for a LTC
CM will follow with discharge plan updates as hospitalization progresses
--- NOTE | 2024-05-16 15:19 | CON.ID ---
Consultation
-
Date/Time Consultation Requested: 05/16/2024 1040
Date/Time Consultation Performed: 05/16/2024 1500
Requesting Provider: Dr. Coon
Performing Provider: Dr. Meza
Reason for Consultation: Pseudomonas bacteremia
Chief Complaint / Past History
History of Present Illness
Aide Bell is a 89-year-old female being evaluated at the request of Dr. Coon in regards to bacteremia with Pseudomonas. History is obtained from chart review alone as patient could not provide little history given underlying dementia.
The patient presented to [facility] on 05/14 from [facility], having been sent secondary to reported hypoxia. The patient was noted to have some chest congestion recently and she was tested and found to be COVID-positive.
At baseline, she uses 2 L O2 as needed. At the shelter she was found to be 88% on room air and noted to have fever, prompting her transfer to the ER.
Once here, she was found to be febrile with a leukocytosis. COVID testing was positive. She was started on remdesivir. Blood cultures obtained at admission are now positive for Pseudomonas, and Infectious Diseases is asked to comment on further
antimicrobial therapy.
No further history is available from the patient.
Patient has not been previously vaccinated against COVID-19 per reviewed notes.
Past History
Additional Past Medical History:
Dementia
Anxiety/depression
CAD
Chronic respiratory insufficiency
Hx pleural effusion
Hx PE
Allergy History:
No Known Allergies Allergy (Verified 05/14/24 11:54)
Medications Reviewed: Yes
Current Antibiotics:
Zosyn 3.375 g IV every 6 hours
Doxycycline 100 mg IV every 12 hours
Remdesivir (day #3)
Social History
Tobacco: Non-Smoker
Alcohol: None
Drug: None
Living: Long-Term
Employment: Not Employed
Family History
Family History: Unable to Obtain
Review of Systems
Vital Signs
Temp Pulse Resp BP Pulse Ox
97.5 F 94 23 113/86 91
05/16/24 14:41 05/16/24 11:30 05/16/24 11:30 05/16/24 11:15 05/16/24 11:30
Physical Exam
Physical Exam
Constitutional: Comfortable, Chronically Ill, Non-toxic and Cachetic
Eyes: Pupils Equal, Pupils Round, No Conjunctival Hemorrhage and Sclera Anicteric
Oral: No Thrush and No Ulcers
Cardiovascular: S1/S2; Negative S3/S4
Pulmonary: Rhonchi (Few; scattered) and Coarse; Negative Rales or Non Labored
Gastrointestinal: Soft, Non Tender, Non Distended, Normal Bowel Sounds, No Rebound and No Guarding
Extremities: Negative Edema, Cyanosis or Erythema
Musculoskeletal: Negative Joint Swelling or Joint Effusion
Skin: Warm and Dry; Negative Rash or Jaundice
Neurological: Awake, Alert and Other (Nonverbal.)
Psychological: Calm
Lab / Diagnostic Study Results
05/16/24 03:29
05/16/24 12:19
Total Counted 100 05/16/24 03:29
Abs Neuts (Manual) 14.4 10^3/uL (1.4-6.5) H 05/16/24 03:29
Segmented Neutrophils 82 % (42-75) H 05/16/24 03:29
Band Neutrophils 12 % (0-3) H 05/16/24 03:29
Lymphocytes (Manual) 3 % (20-51) L 05/16/24 03:29
PT 18.3 Sec (11.4-14.6) H 05/15/24 04:26
INR 1.50 05/15/24 04:26
Lactic Acid 5.2 mmol/L (0.7-2.0) H* 05/16/24 09:24
Ur Squamous Epith Cells >30 /LPF (Few) 05/14/24 11:41
Microbiology Results
Micro:
05/14/24 11:38 Blood Culture - Preliminary
Blood/Venous Pseudomonas aeruginosa (presumptive by PCR methodology)
Gram Stain - Preliminary
05/14/24 11:37 Blood Culture - Preliminary
Blood/Venous Pseudomonas aeruginosa
Gram Stain - Preliminary
05/14/24 11:41 Urine Culture - Final
Urine
05/14/24 17:06 Nasal Screen MRSA (PCR) - Final
Nose Staph aureus MRSA
05/14/24 11:41 Legionella Urinary Antigen - Final
Urine Negative for Legionella pneumophila Serogroup 1 antigen.
A negative result does not rule out the possiblity of
Legionella infection due to other serogroups or species of
Legionella. Clinical correlation is recommended.
05/14/24 11:17 Influenza Types A & B (ROGER) - Final
Nasal Swab Negative for Influenza A & B, NAAT
Negative results must be combined with clinical observations
and patient history.
Nucleic Acid Amplification test (NAAT)performed on the
[employer] platform.
Imaging:
05/16/2024 CXR (portable): Hazy opacity within the left mid and lower lung zones, with partial obscuration of the left hemidiaphragm. No evidence of pneumothorax or decompensated CHF.
05/14/2024 CXR (portable): Consolidation is noted in the left upper lobe which is likely pneumonia. Also noted severe degenerative changes in thoracic spine, with prominent scoliosis and curvature towards the right. Please see full dictation for
additional detail.
Assessment / Plan
Pseudomonas bacteremia
COVID-19 infection
Fever
Leukocytosis
Hypernatremia; improved
Lactic acidosis
Transaminitis
Protein calorie malnutrition
Dementia
Anxiety/depression
CAD
Chronic respiratory insufficiency
Hx pleural effusion
Hx PE
Recommendations:
Continue remdesivir to complete a 5-day course.
Transition Zosyn to cefepime for slightly improved coverage of Pseudomonas.
Can discontinue further doxycycline as atypical coverage not necessary at this point
Repeat blood cultures today to assess clearance.
Await further culture data to guide antimicrobial selection and potential de-escalation.
Monitor white count and temperature curve.
Continue with supportive measures.
--- NOTE | 2024-05-16 16:30 | PTCARENOTE ---
report given to 2n kelsey
[2024-05-16] MEDS: STERILE WATER FOR INJECTION 10 ML IV (16:56)
[2024-05-16] MEDS: MAXIPIME 2000 MG IV (16:56)
[2024-05-16] MEDS: MAGNESIUM SULFATE 50 IV (17:22)
[2024-05-16 18:21] LABS: Glucose - Point of Care 125 mg/dl (70-99)
--- NOTE | 2024-05-16 18:47 | PTCARENOTE ---
pt transferred to 2N at 1730. pt covid positive. language barrier, restless and bed alarm in place. per ICU nurse pt with PERRY site this afternoon was infiltrated and caused bruising. VAT team and hospitalist were made aware. Stat mag hung by this
nurse when patient was settled within the room. 1800 accucheck resulted at 125 so no sliding scale insulin needed at this time. pt remains NPO due to failing with speech today. pt weaned to room air before coming down to 2N. O2 sat between 89-92. pt
placed on 2L
[2024-05-16] MEDS: ProAIR HFA INHALER 2 PUFF INH (22:35)
--- NOTE | 2024-05-16 22:40 | PTCARENOTE ---
Addendum entered by Yeny Saenz RN 05/17/24 05:32:
Morphine IV administered at midnight for RR 44, some + effect.
Original Note:
Pt noted in respiratory distress at this time, tachypneic, labored breathing and Pox 74 % on 2L. Congested, Lungs coarse throughout, occasional harsh nonproductive cough. VS 95/69, HR 96, T 97.1, RR 44. O2 increase to 5 L with pox 88-93%. TT
respiratory and at the bedside to administer PRN albuterol inhaler to pt. bilingual sales assistant CAFETERIA ASSISTANT made aware and Morphine IV 0.5 mg ordered PRN q4hr.
[2024-05-16 23:32] LABS: Glucose - Point of Care 111 mg/dl (70-99)
[2024-05-17] MEDS: MORPHINE SULFATE 1 MG IV ×2 (00:02→05:10)
[2024-05-17 00:34] LABS: Lactic Acid 3.5 mmol/L (0.7-2.0)
[2024-05-17 02:47] VITALS: BP 107/76
[2024-05-17] MEDS: DUONEB 3 ML INH (03:17)
[2024-05-17 03:21] LABS: Cortisol, Random 28.4 ug/dl
[2024-05-17] MEDS: STERILE WATER FOR INJECTION 10 ML IV (03:50)
[2024-05-17] MEDS: MAXIPIME 2000 MG IV (03:50)
[2024-05-17 04:31] LABS: % Basophils 0.1 % (0-2); % Immature Granulocytes 0.5 % (0-0.5); % Lymphocytes 5.3 % (20.5-51.1); % Monocytes 6.7 % (1.7-9.3); % Neutrophils 87.4 % (42.2-75.2); Absolute Immature Granulocytes 0.1 10^3/uL (0-0.05); Absolute Lymphocytes 0.6 10^3/uL (1.2-3.4); Absolute Monocytes 0.7 10^3/uL (0.1-0.6); Absolute Neutrophils 9.4 10^3/uL (1.4-6.5); Hematocrit 39.5 % (37.0-47.0); Hemoglobin 13.5 g/dL (12.0-16.0); Mean Corp Hgb Conc. 34.2 g/dL (33.0-37.0); Mean Corpuscular Volume 87.8 fL (81.0-99.0); Mean Platelet Volume 12.5 fL (7.4-10.4); Nucleated Red Blood Cells % 0 %; Platelet Count 187 10^3/uL (130-400); Red Cell Dist. Width 15.3 % (11.5-14.5); White Blood Cell Count 10.7 10^3/uL (4.8-10.8)
[2024-05-17 05:06] LABS: Lactic Acid 2.8 mmol/L (0.7-2.0)
--- NOTE | 2024-05-17 05:15 | PTCARENOTE ---
PRN Neb treatment ordered by bone char kiln tender CASKET UPHOLSTERER. Pt moved to negative pressure room, nebulizer administered by RT. Pox 95% @ 6L via midflow. Pt remains drowzy, weak and slightly tachypneic.
[2024-05-17 05:17] LABS: AST (SGOT) 71 U/L (14-36); Alkaline Phosphatase 120 U/L (38-126); Blood Urea Nitrogen 22 mg/dl (7-17); Calcium 7.5 mg/dl (8.4-10.2); Carbon Dioxide 27 mmol/L (22-30); Chloride 105 mmol/L (98-107); Estimated Creatinine Clearance 38 ml/min; Glucose 112 mg/dl (70-99); Potassium 3.6 mmol/L (3.5-5.1); Sodium 144 mmol/L (135-145); Total Bilirubin 1.4 mg/dl (0.2-1.3); eGFR > 60.00
[2024-05-17 05:25] LABS: ALT (SGPT) 37 U/L (0-35)
[2024-05-17 06:02] LABS: Glucose - Point of Care 110 mg/dl (70-99)
[2024-05-17 07:20] VITALS: BP 98/61
[2024-05-17] MEDS: DECADRON 6 MG IV (08:27)
[2024-05-17] MEDS: LOVENOX 40 MG SC (08:28)
[2024-05-17] MEDS: NSS (PRESERVATIVE FREE) 10 ML IV (08:28)
[2024-05-17] MEDS: PROTONIX IV 40 MG IV (08:28)
[2024-05-17] MEDS: SODIUM BICARBONATE 1050 MEQ IV (08:29)
[2024-05-17 09:48] LABS: Lactic Acid 2.3 mmol/L (0.7-2.0)
--- NOTE | 2024-05-17 10:26 | W.PN.NEPH.PH ---
Today's Communication / Plan
-
Hypotonic IV fluids
Magnesium repletion
Potassium
Assessment/Plan
-
Assessment
Sepsis
Pneumonia
Pseudomonas bacteremia
Hypotension
COVID-positive
Hypernatremia
Metabolic acidosis
Lactic acidosis
Plan:\\
Serum sodium stable at 144
metabolic acidosis resolved
follow BMP
replete K and magensium
remains hypotensive
checked cortisol: 28
checked magnesium: 1.4
keep MAP>65
-
-
Date of Service: May 17, 2024
CC / HPI / ROS
-
Chief Complaint:
hypernatremia
History of Present Illness:
Na improved with hypotonic IVFd: 144
K low still 3.6
acidosis improved
BP low
remdesavir for COVID
Review of Systems:
noncommunicative
not eating or drinking
Labs
-
Labs:
WBC 10.7 10^3/uL (4.8-10.8) 05/17/24 04:09
RBC 4.50 10^6/uL (4.20-5.40) 05/17/24 04:09
Hgb 13.5 g/dL (12.0-16.0) 05/17/24 04:09
Hct 39.5 % (37.0-47.0) 05/17/24 04:09
Plt Count 187 10^3/uL (130-400) 05/17/24 04:09
Sodium 144 mmol/L (135-145) 05/17/24 04:09
Potassium 3.6 mmol/L (3.5-5.1) 05/17/24 04:09
Chloride 105 mmol/L (98-107) 05/17/24 04:09
Carbon Dioxide 27 mmol/L (22-30) 05/17/24 04:09
BUN 22 mg/dl (7-17) H 05/17/24 04:09
Creatinine 0.7 mg/dL (0.6-1.0) 05/17/24 04:09
eGFR > 60.00 05/17/24 04:09
Glucose 112 mg/dl (70-99) H 05/17/24 04:09
Calcium 7.5 mg/dl (8.4-10.2) L 05/17/24 04:09
Albumin 2.0 g/dl (3.5-5.0) L 05/17/24 04:09
Physical Exam
-
Vital Signs:
Vital Signs
Temp Pulse Resp BP Pulse Ox
97.7 F 94 16 98/61 95
05/17/24 07:20 05/17/24 07:20 05/17/24 07:20 05/17/24 07:20 05/17/24 07:20
[2024-05-17] MEDS: MAGNESIUM SULFATE 50 IV (10:50)
[2024-05-17] MEDS: 0.45% NACL with KCL 20 MEQ 1000 IV (10:50)
--- NOTE | 2024-05-17 11:07 | W.PN.PUL3 ---
Today's Communication / Plan
-
Remains on 6L NC, wean as tolerated
Cannot participate in PT/supportive care
Continue treatments for COVID PNA
Prone positioning as tolerated
She is DNR, if clinically deteriorating would discuss GOC with family
Assessment
-
89-year-old English speaking female with a history of severe dementia, aortic aneurysm, anxiety, CAD, COPD, chronic respiratory failure-on chronic 2 L of oxygen, pleural effusions, depression, pulmonary embolism presented from [facility]
home with hypoxemia and tested COVID +4 days [facility] with hypoxemia, sepsis and pneumonia-continuous improvement consultant consulted for pneumonia/respiratory failure/critical care management 05/14/2024.
Respiratory failure-acute on top of chronic hypoxemic respiratory failure
Pneumonia-shelter acquired
[id number]-[id number]-1 days [facility]
Gram-negative bacteremia
UTI
Aspiration risk
Leukocytosis
Lymphopenia
Polycythemia
Hyponatremia
Metabolic acidosis
Lactic acidosis
Hyperglycemia
Transaminitis
Protein calorie malnutrition-BMI 17
DNR
Conditions present prior to admission:
Aortic aneurysm.
Anxiety.
CAD.
Chronic respiratory failure on 2 L O2.
Former smoker-greater than [id number] January 2024
Pleural effusions.
Severe dementia
History of PE.
Depression.
Scoliosis
Ventral hernia
Plan
Radiographic appearance consistent with lobar probable bacterial pneumonia-does not have the appearance of diffuse COVID-pneumonia
Reportedly patient is unvaccinated and unclear whether she had COVID infection before-trying to establish previous long-term immunity
Respiratory status slowly improving, she is 95% on 6L NC
Supplemental oxygen as needed-now weaned to mid flow from high flow-continue to wean-reviewed with PLASTIC EXTRUSION OPERATOR
NIV has not been needed
Inhalers if needed-currently not bronchospastic
Chest x-ray 05/16/2024-unchanged opacification suggestive of pneumonia, no significant change from previous
Incentive spirometry if able
Aspiration precautions per protocol
Speech therapy evaluation
Isolation per protocol
Negative pressure room
Prone position if needed to help with oxygenation
Cultures reviewed
Sputum culture-unable to produce
MRSA screen positive
Urine Legionella negative
Follow radiographically
Monitor leukocytosis and temperature curve
Decrease IV fluids
Norepinephrine wean
Dexamethasone initiated per protocol
Remdesivir also continues per protocol
Monitor hemoglobin and polycythemia-suspect some hemoconcentration and chronic hypoxemia leading to secondary polycythemia-with hydration 15.5 and now 13.1
Monitor blood sugar
Insulin supplementation as needed especially in light of steroid initiation
Monitor serum sodium-improved and now 142
Monitor serum bicarb
Increase free water
Nephrology consultation noted-correspondence reviewed-managing IV fluids
DVT prophylaxis-was on Eliquis 2.5 mg twice daily for pulmonary embolism-changed to Lovenox 40 mg subcu every 12 hours has not taking oral medications
Nutrition
Physical therapy
Family conversations:
Dr. Lopez spoke at length in person to son and [id number]-05/15/2024 explained the grave situation, declining, potential need for intubation, CPR, defibrillation and what the patient would have wanted-after lengthy conversation explaining
potential futile care if we progress that far, potential for harming the patient with chest compressions and shocking as well as uncomfortable ventilator he continues to want full support-we will continue to discuss this with him and hopefully make
her supportive care but short of intubation/CPR and shocking-for now she is a full code
Mavyvwvs-RYB-jkdk phone [phone] and daughter-involvement Lerra [phone]
Diagnostic Data:
CXR 05/16/24- 1. Unchanged hazy opacity within left midlung zone, most suggestive of pneumonia.
2. Obscuration of left hemidiaphragm, suggestive of small left pleural effusion.
3. No significant change compared to prior chest x-ray.
Chest x-ray 05/14/2024-left upper lobe consolidation
-----
Total time spent on this encounter __50__ minutes which includes review of history, physical exam, medications, laboratory data, personal review of imaging, extensive review of outpatient records, discussion with care team and respiratory therapy.
Subjective Data
-
Date of Service:
Date of Service: May 17, 2024
Chief Complaint: Pulmonary Follow Up
Subjective:
No events ON, remains lethargic, nonverbal
Labored, but mild
Objective Data
Data Reviewed
Vital Signs / I&O / Oxygen:
Vital Signs
Temp Pulse Resp BP Pulse Ox
97.7 F 94 16 98/61 95
05/17/24 07:20 05/17/24 07:20 05/17/24 07:20 05/17/24 07:20 05/17/24 07:20
Intake and Output
05/16/24 05/17/24 05/18/24
06:59 06:59 06:59
Intake Total 4854.0 / 5040.0 1526 / 1526 1200 / 1200
Output Total 460 / 460 1200 / 1200
Balance 4394.0 / 4580.0 326 / 326 1200 / 1200
SaO2 95
Nasal Cannula flow liters per 6
minute
Physical Exam
General: Respiratory Distress (mild), Poor Appetite and Other (Thin appearing)
HEENT: Normocephalic and Anicteric
Cardiovascular: S1-S2 and Regular Rhythm
Respiratory: Clear and Accessory Resp Muscle Use (mild)
GI: Soft, Non Distended and Non Tender
Neurology: Awake, Alert and Other (eyes open, non verbal)
Skin: Warm and Dry
Labs/Micro/Reports
Lab Data
05/17/24 04:09
05/17/24 04:09
Microbiology
05/14/24 11:38 Blood/Venous Blood Culture - Preliminary
Pseudomonas aeruginosa
05/14/24 11:38 Blood/Venous Gram Stain - Preliminary
05/14/24 11:37 Blood/Venous Blood Culture - Preliminary
Pseudomonas aeruginosa
05/14/24 11:37 Blood/Venous Gram Stain - Preliminary
05/14/24 11:41 Urine Urine Culture - Final
05/14/24 17:06 Nose Nasal Screen MRSA (PCR) - Final
Staph aureus MRSA
05/14/24 11:41 Urine Legionella Urinary Antigen - Final
Negative for Legionella pneumophila Serogroup 1 antigen.
A negative result does not rule out the possiblity of
Legionella infection due to other serogroups or species of
Legionella. Clinical correlation is recommended.
05/14/24 11:17 Nasal Swab Influenza Types A & B (ROGER) - Final
Negative for Influenza A & B, NAAT
Negative results must be combined with clinical observations
and patient history.
Nucleic Acid Amplification test (NAAT)performed on the
[employer] platform.
[2024-05-17 11:46] LABS: Glycohemoglobin (HgbA1c) 6.1 % (4.0-5.6)
[2024-05-17 12:44] LABS: Glucose - Point of Care 137 mg/dl (70-99)
[2024-05-17] MEDS: VEKLURY 250 MG IV (12:48)
[2024-05-17 12:53] VITALS: BP 82/49
--- NOTE | 2024-05-17 13:00 | CM ---
Chart reviewed
Covid +
Resident of [facility]
Bed hold
PLAN: Return to [facility]
Report #: [phone]
Fax #: [phone]
[2024-05-17 14:04] VITALS: BMI 17.2
--- NOTE | 2024-05-17 15:56 | W.PN.ID1 ---
Date of Service
Date of Service: May 17, 2024
Today's Communication
Sign off
Assessment / Plan
Pseudomonas bacteremia
COVID-19 infection
Fever
Leukocytosis
Hypernatremia; improved
Lactic acidosis
Transaminitis
Protein calorie malnutrition
Dementia
Anxiety/depression
CAD
Chronic respiratory insufficiency
Hx pleural effusion
Hx PE
Recommendations:
Patient now has been transition to comfort measures.
Antibiotics-discontinued.
Little more to offer from a Infectious Diseases.
Will see again at your request.
Chief Complaint
-: Other (Covid 19)
Subjective / Review of Systems
Review of Systems: No Fever
Vital Signs / Physical Exam
Vital Signs
Vital Signs
Temp Pulse Resp BP Pulse Ox
96.5 F L 81 26 82/49 90
05/17/24 12:53 05/17/24 12:53 05/17/24 12:53 05/17/24 12:53 05/17/24 12:53
Physical Exam
Constitutional: Comfortable and Cachetic
Pulmonary: Other (mildly labored)
Gastrointestinal: Non Distended
Psychological: Calm
Objective Data
Lab Data
Lab Results
05/17/24 04:09
05/17/24 04:09
PT 18.3 Sec (11.4-14.6) H 05/15/24 04:26
INR 1.50 05/15/24 04:26
Estimated Creat Clear 38 ml/min 05/17/24 04:09
Lactic Acid 2.3 mmol/L (0.7-2.0) H 05/17/24 09:17
Total Bilirubin 1.4 mg/dl (0.2-1.3) H 05/17/24 04:09
AST 71 U/L (14-36) H 05/17/24 04:09
ALT 37 U/L (0-35) H 05/17/24 04:09
Alkaline Phosphatase 120 U/L (38-126) 05/17/24 04:09
Most recent labs reviewed.
Micro Results:
05/14/24 11:38 Blood Culture - Preliminary
Blood/Venous Pseudomonas aeruginosa
Gram Stain - Preliminary
05/14/24 11:37 Blood Culture - Preliminary
Blood/Venous Pseudomonas aeruginosa
Gram Stain - Preliminary
05/16/24 16:12 Blood Culture - Pending
Blood/Venous
05/16/24 16:12 Blood Culture - Pending
Blood/Venous
05/14/24 11:41 Urine Culture - Final
Urine
05/14/24 17:06 Nasal Screen MRSA (PCR) - Final
Nose Staph aureus MRSA
05/14/24 11:41 Legionella Urinary Antigen - Final
Urine Negative for Legionella pneumophila Serogroup 1 antigen.
A negative result does not rule out the possiblity of
Legionella infection due to other serogroups or species of
Legionella. Clinical correlation is recommended.
05/14/24 11:17 Influenza Types A & B (ROGER) - Final
Nasal Swab Negative for Influenza A & B, NAAT
Negative results must be combined with clinical observations
and patient history.
Nucleic Acid Amplification test (NAAT)performed on the
[employer] platform.
Imaging:
05/16/2024 CXR (portable): Hazy opacity within the left mid and lower lung zones, with partial obscuration of the left hemidiaphragm. No evidence of pneumothorax or decompensated CHF.
05/14/2024 CXR (portable): Consolidation is noted in the left upper lobe which is likely pneumonia. Also noted severe degenerative changes in thoracic spine, with prominent scoliosis and curvature towards the right. Please see full dictation for
additional detail.
--- NOTE | 2024-05-17 16:46 | W.PN.HOSP.TC ---
Today's Communication/Plan
-
Comfort care
Assessment / Plan
Assessment / Plan
Impression:
Severe sepsis secondary to bacterial pneumonia.
Acute on chronic hypoxic respiratory failure secondary to above
Pseudomonas bacteremia
COVID-19 +4 days prior to admission.
Suspect severe aspiration syndrome.
Mild elevation of transaminases
Metabolic acidosis with elevated lactic acid level.
Severe dehydration with hypernatremia.
Septic shock with hypotension not responding to IV fluids, requiring vasopressor support
Severe protein calorie malnutrition with BMI of 17.
Conditions prior to admission:
Aortic aneurysm.
CAD.
Essential hypertension
Chronic respiratory failure on O2 supplementations at 2 L.
Recent PE on Eliquis.
History of pleural effusion.
Scoliosis.
Ventral hernia.
Depression/anxiety.
Chronic ambulatory dysfunction.
assisted resident
Plan:
Severe sepsis most likely secondary to bacterial pneumonia
Chest x-ray with left lower lobe infiltrate
Aspiration pneumonia most likely with underlying severe aspiration syndrome secondary to dementia.
Blood culture positive with Pseudomonas.
MRSA screen positive
COVID-19 +4 days prior to admission. Not vaccinated
Septic shock.
Metabolic acidosis with elevated lactic acid level.
Severe dehydration with hypernatremia
History of recent pulmonary embolism
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
.
CAD
Essential hypertension.
Aortic aneurysm
Preadmission regimen amlodipine, metoprolol, currently on hold due to severe hypotension
CODE STATUS
05/15: Goals of care discussion with POA patient's son Bradford on 05/15. Patient is 89 years old female with chronic hypoxic respiratory failure, failure to thrive, bedbound intermediate resident presented with severe sepsis, septic shock, acute
respiratory failure, severe dehydration with metabolic acidosis with impending multiple organ failure. Remains high risk for progression and decompensation not limited to cardiorespiratory arrest. Patient's son completely understand situation and
wishes not to employ any heroic measures including CPR or invasive ventilation.
DNR.
05/17. Patient remains in respiratory distress with tenuous respiratory status while on 6 L mid flow oxygen support. Noncommunicative. Remains high aspiration risk. Later with recurrent hypotension while off pressors. In discussion with
patient's son/power of deputy attorney general and given severe sepsis not responsive to aggressive antibiotic, IV fluids, and pressor therapy, as well as advanced dementia with severe aspiration syndrome comfort would be a priority.
Anticipated Discharge: 24 - 48 hours
Subjective/Interval History
-
Date of Service: May 17, 2024
Objective Data
-
Labs:
Laboratory Results
05/17/24
04:09
Sodium 144
Potassium 3.6
Chloride 105
Carbon Dioxide 27
BUN 22 H
Creatinine 0.7
Glucose 112 H
Calcium 7.5 L
Total Bilirubin 1.4 H
AST 71 H
ALT 37 H
Alkaline Phosphatase 120
Vital Signs:
Vital Signs
Temp Pulse Resp BP Pulse Ox
96.5 F L 81 26 82/49 90
05/17/24 12:53 05/17/24 12:53 05/17/24 12:53 05/17/24 12:53 05/17/24 12:53
I&O
05/16/24 05/17/24 05/18/24
06:59 06:59 06:59
Intake Total 4854.0 / 5040.0 1526 / 1526 1200 / 1200
Output Total 460 / 460 1200 / 1200
Balance 4394.0 / 4580.0 326 / 326 1200 / 1200
Physical Exam
-
General: Well Developed and No Apparent Distress
HEENT: Normocephalic, Atraumatic and Moist Mucous Membranes
Respiratory: Clear to Auscultation
Cardiac: Regular Rhythm and S1/S2; Negative Murmur, Rub or Gallop
GI: Soft, Nontender, Nondistended and Normal Bowel Sounds; Negative Organomegaly
Rectal: Deferred by Provider
Musculoskeletal: No Clubbing, No Cyanosis and No Edema
Skin: Negative Rash
Neuro: Nonfocal/Grossly Intact
[2024-05-17 19:44] VITALS: BP 102/60
[2024-05-17] MEDS: MORPHINE SULFATE 2 MG IV (22:52)
[2024-05-18] MEDS: 0.45% NACL with KCL 20 MEQ 1000 IV (00:36)
[2024-05-18 07:55] VITALS: BP 123/61
--- NOTE | 2024-05-18 08:07 | W.PN.HOSP.TC ---
Today's Communication/Plan
-
Continue Comfort Care.
Assessment / Plan
Assessment / Plan
Physical Exam
General: No Apparent Distress
HEENT: Normocephalic, Atraumatic
Respiratory: Clear to Auscultation Bilaterally
Cardiac: Regular Rhythm and S1/S2
GI: Soft, Nontender, Nondistended and Positive Bowel Sounds
Musculoskeletal: No Cyanosis and No Edema
Skin: Warm. Dry.
Neuro: Nonfocal/Grossly Intact
Impression:
Severe sepsis secondary to bacterial pneumonia.
Septic Shock.
Acute on chronic hypoxic respiratory failure secondary to above
Pseudomonas bacteremia
COVID-19 +4 days prior to admission.
Suspect severe aspiration syndrome.
Mild elevation of transaminases
Metabolic acidosis with elevated lactic acid level.
Severe dehydration with hypernatremia.
Septic shock with hypotension not responding to IV fluids, requiring vasopressor support
Severe protein calorie malnutrition with BMI of 17.
Conditions prior to admission:
Aortic aneurysm.
CAD.
Essential hypertension
Chronic respiratory failure on O2 supplementations at 2 L.
Recent PE on Eliquis.
History of pleural effusion.
Scoliosis.
Ventral hernia.
Depression/anxiety.
Chronic ambulatory dysfunction.
shelter resident
Plan:
CODE STATUS
05/15/24: Dr. Coon had goals of care discussion with POA patient's son Bradford on 05/15/24. Patient is 89 years old female with chronic hypoxic respiratory failure, failure to thrive, bedbound alf resident presented with severe
sepsis, septic shock, acute respiratory failure, severe dehydration with metabolic acidosis with impending multiple organ failure. Remains high risk for progression and decompensation not limited to cardiorespiratory arrest. Patient's son
completely understand situation and wishes not to employ any heroic measures including CPR or invasive ventilation.
DNR.
05/17/24. Patient remained in respiratory distress with tenuous respiratory status while on 6 L mid flow oxygen support. Noncommunicative. Remains high aspiration risk. Later with recurrent hypotension while off pressors. In discussion with
patient's son/power of assistant attorney general and given severe sepsis not responsive to aggressive antibiotic, IV fluids, and pressor therapy, as well as advanced dementia with severe aspiration syndrome comfort would be a priority. Patient's family agreed to
Comfort Care and Comfort Care measures were started.
05/18/24: Patient appears to be comfortable. Reached out to hospice nurse and case management.
-Continue Comfort Care.
Anticipated Discharge: 24 - 48 hours
Subjective/Interval History
-
Date of Service: May 18, 2024
Patient was seen and examined. She appeared to be comfortable.
Objective Data
-
Vital Signs:
Vital Signs
Temp Pulse Resp BP Pulse Ox
94.5 F L 81 20 102/60 94
05/17/24 19:44 05/17/24 19:44 05/17/24 19:44 05/17/24 19:44 05/18/24 05:12
I&O
05/17/24 05/18/24 05/19/24
06:59 06:59 06:59
Intake Total 1526 / 1526 2400 / 2400
Output Total 1200 / 1200
Balance 326 / 326 2400 / 2400
--- NOTE | 2024-05-18 10:15 | W.PN.NEPH.PH ---
Today's Communication / Plan
-
comfort care noted per primary
Assessment/Plan
-
Assessment
Sepsis
Pneumonia
Pseudomonas bacteremia
Hypotension
COVID-positive
Hypernatremia
Metabolic acidosis
Lactic acidosis
Plan:\\
Serum sodium stable , pending labs
noted plan of comfort care
d/c IVF when can
will s/o
-
-
Date of Service: May 18, 2024
CC / HPI / ROS
-
Chief Complaint:
hypernatremia
History of Present Illness:
Na improved with hypotonic IVFd: 144
K low still 3.6
no labs today
acidosis improved
BP stable
remdesavir for COVID
Review of Systems:
noncommunicative
not eating or drinking
Labs
-
Labs:
WBC 10.7 10^3/uL (4.8-10.8) 05/17/24 04:09
RBC 4.50 10^6/uL (4.20-5.40) 05/17/24 04:09
Hgb 13.5 g/dL (12.0-16.0) 05/17/24 04:09
Hct 39.5 % (37.0-47.0) 05/17/24 04:09
Plt Count 187 10^3/uL (130-400) 05/17/24 04:09
eGFR > 60.00 05/17/24 04:09
Albumin 2.0 g/dl (3.5-5.0) L 05/17/24 04:09
Physical Exam
-
Vital Signs:
Vital Signs
Temp Pulse Resp BP Pulse Ox
97.6 F 50 14 123/61 94
05/18/24 07:55 05/18/24 07:55 05/18/24 07:55 05/18/24 07:55 05/18/24 07:55
Cardiovascular:: Regular rate and rhythm
Lung Excursion:: Abnormal (decreased bs)
Abdomen:: Nontender and Soft
Extremity Edema:: None: Bilateral:
Larose Catheter: No
[2024-05-18 10:16] LABS: Blood Urea Nitrogen 25 mg/dl (7-17); Calcium 7.5 mg/dl (8.4-10.2); Carbon Dioxide 30 mmol/L (22-30); Chloride 104 mmol/L (98-107); Estimated Creatinine Clearance 44 ml/min; Glucose 97 mg/dl (70-99); Potassium 4.2 mmol/L (3.5-5.1); Sodium 139 mmol/L (135-145); eGFR > 60.00
[2024-05-18] MEDS: MORPHINE SULFATE 2 MG IV ×3 (11:33→21:07)
[2024-05-18] MEDS: 0.45% NACL with KCL 20 MEQ IV (11:41)
--- NOTE | 2024-05-18 12:34 | W.PN.PUL.V3 ---
Today's Communication / Plan
-
Attempts at weaning FiO2
Comfort a priority
Morphine as needed
Pulmonary will sign off-please call with questions
Assessment
-
89-year-old Georgian speaking female with a history of severe dementia, aortic aneurysm, anxiety, CAD, COPD, chronic respiratory failure-on chronic 2 L of oxygen, pleural effusions, depression, pulmonary embolism presented from [facility]
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
Respiratory failure-acute on top of chronic hypoxemic respiratory failure
Pneumonia-long-term acquired
SFYIF-[id number]-2 days QUALITY ASSURANCE CALIBRATOR
Gram-negative bacteremia
UTI
Aspiration risk
Leukocytosis
Lymphopenia
Polycythemia
Hyponatremia
Metabolic acidosis
Lactic acidosis
Hyperglycemia
Transaminitis
Protein calorie malnutrition-BMI 17
DNR
Conditions present prior to admission:
Aortic aneurysm.
Anxiety.
CAD.
Chronic respiratory failure on 2 L O2.
Former smoker-greater than [id number]-quit January 2024
Pleural effusions.
Severe dementia
History of PE.
Depression.
Scoliosis
Ventral hernia
Plan
Radiographic appearance consistent with lobar probable bacterial pneumonia-does not have the appearance of diffuse COVID-pneumonia
Reportedly patient is unvaccinated and unclear whether she had COVID infection before-trying to establish previous long-term immunity
Respiratory status relatively stable 95% on 6L NC
Supplemental oxygen as needed-now weaned to mid flow from high flow-continue to wean-reviewed with ARABIC TRANSLATOR
NIV has not been needed
Inhalers if needed-currently not bronchospastic
Chest x-ray 05/16/2024-unchanged opacification suggestive of pneumonia, no significant change from previous
Incentive spirometry if able
Aspiration precautions per protocol
Speech therapy evaluation
Isolation per protocol
Negative pressure room
Prone position if needed to help with oxygenation
Cultures reviewed
Sputum culture-unable to produce
MRSA screen positive
Urine Legionella negative
Follow radiographically
Monitor leukocytosis and temperature curve
Decrease IV fluids
Norepinephrine wean off
Dexamethasone initiated per protocol-finished 5-day course
Remdesivir also continues per protocol-finished
Monitor hemoglobin and polycythemia-suspect some hemoconcentration and chronic hypoxemia leading to secondary polycythemia-with hydration 15.5 and now 13.1
Monitor blood sugar
Insulin supplementation as needed especially in light of steroid initiation
Monitor serum sodium-improved and now 142
Monitor serum bicarb
Increase free water
Nephrology consultation noted-correspondence reviewed-managing IV fluids
DVT prophylaxis-was on Eliquis 2.5 mg twice daily for pulmonary embolism-changed to Lovenox 40 mg subcu every 12 hours has not taking oral medications
Nutrition
Physical therapy
Reviewed primary notes-comfort a priority-comfort care-pulmonary will sign off-please call with questions
Family conversations:
Dr. Lopez spoke at length in person to son and [id number]-05/15/2024 explained the grave situation, declining, potential need for intubation, CPR, defibrillation and what the patient would have wanted-after lengthy conversation explaining
potential futile care if we progress that far, potential for harming the patient with chest compressions and shocking as well as uncomfortable ventilator he continues to want full support-we will continue to discuss this with him and hopefully make
her supportive care but short of intubation/CPR and shocking-for now she is a full code
Xdudypyq-TDJ-solb phone [phone] and daughter-involvement Lerra [phone]
Diagnostic Data:
CXR 05/16/24- 1. Unchanged hazy opacity within left midlung zone, most suggestive of pneumonia.
2. Obscuration of left hemidiaphragm, suggestive of small left pleural effusion.
3. No significant change compared to prior chest x-ray.
Chest x-ray 05/14/2024-left upper lobe consolidation
.
Subjective Data
-
Date of Service:
Date of Service: May 18, 2024
Chief Complaint: Pulmonary Follow Up and Dyspnea Follow Up
Subjective:
No respiratory distress, still on high FiO2, noncommunicative
Review of Systems
General: Other
Objective Data
Data Reviewed
Vital Signs / I&O:
Vital Signs
Temp Pulse Resp BP Pulse Ox
97.6 F 50 14 123/61 94
05/18/24 07:55 05/18/24 07:55 05/18/24 07:55 05/18/24 07:55 05/18/24 07:55
Intake and Output
05/17/24 05/18/24 05/19/24
06:59 06:59 06:59
Intake Total 1526 / 1526 2400 / 2400
Output Total 1200 / 1200
Balance 326 / 326 2400 / 2400
SaO2: 94
Nasal Cannula flow liters per minute: 6
Physical Exam
General: Respiratory Distress (mild), Poor Appetite and Other (Thin appearing)
HEENT: Normocephalic and Anicteric
Cardiovascular: Regular Rhythm
Respiratory: Clear and Accessory Resp Muscle Use (mild)
GI: Soft, Non Distended and Non Tender
Neurology: Awake, Alert and Other (eyes open, non verbal)
Skin: Warm, Dry, Cyanosis (n) and Jaundice (n)
Labs/Micro/Reports
Lab Data
05/17/24 04:09
05/18/24 09:32
Microbiology
05/16/24 16:12 Blood/Venous Blood Culture - Preliminary
No Growth in 24 hours- Final report to follow
05/16/24 16:12 Blood/Venous Blood Culture - Preliminary
No Growth in 24 hours- Final report to follow
05/14/24 11:38 Blood/Venous Blood Culture - Preliminary
Pseudomonas aeruginosa
05/14/24 11:38 Blood/Venous Gram Stain - Preliminary
05/14/24 11:37 Blood/Venous Blood Culture - Preliminary
Pseudomonas aeruginosa
05/14/24 11:37 Blood/Venous Gram Stain - Preliminary
05/14/24 11:41 Urine Urine Culture - Final
--- NOTE | 2024-05-18 14:02 | CM ---
Chart reviewed. Pt currently on comfort care.
Hospice consulted. Per Jessica/ hospice, pt to cont. w/ comfort care and for CM to enter hospice referral.
Hospice referral completed in [facility]. Hospice to cont to follow
Plan: Poss inpatient hospice
--- NOTE | 2024-05-18 15:08 | HOSPNOTE ---
Hospice referral received. After review of records and speaking to primary nurse, patient is comfortable on current regimen and has no unmanaged symptoms at this time. Also appears to be imminent as well. Recommendation is to remain on comfort
and hospice will continue to follow for support and daily assessment for inpatient hospice appropriateness. Also called and left a VM for son to offer support. Left return phone number if he desired to call back for support. CM, Attending and
Primary RN updated. Will reassess tomorrow.
[2024-05-18 20:08] VITALS: BP 108/69
[2024-05-18] MEDS: ATIVAN 2 MG IV (21:10)
[2024-05-18] MEDS: NSS (PRESERVATIVE FREE) 1 ML IV (21:11)
[2024-05-19] MEDS: MORPHINE SULFATE 2 MG IV ×3 (00:26→10:06)
[2024-05-19 08:10] VITALS: BP 93/56
[2024-05-19] MEDS: ATIVAN 2 MG IV (08:33)
--- NOTE | 2024-05-19 10:34 | HOSPNOTE ---
Hospice is following for support. Patient is having increase in dyspnea this morning. Primary RN gave PRN morphine and is starting morphine infusion at step 2. Attending aware. Asked to call family and offer support- I was able to reach the son and
DIL. Reviewed patients condition and need for medications to help keep her comfortable. Also made family aware that appears to be imminent. They verbalized understanding. They are coming to the hospital within the hour. Reviewed hospice is
available for support and to please let the primary RN know if they would like us to support them. Understanding verbalized. Emotional support provided. Primary Nurse and Attending updated. Hospice continues to be available.
[2024-05-19] MEDS: MORPHINE 100 IV (11:09)
--- NOTE | 2024-05-19 12:43 | W.PN.HOSP.TC ---
Today's Communication/Plan
-
Continue Comfort Care
Assessment / Plan
Assessment / Plan
Physical Exam
General: No Apparent Distress
HEENT: Normocephalic, Atraumatic
Respiratory: Clear to Auscultation Bilaterally
Cardiac: Regular Rhythm and S1/S2
GI: Soft, Nontender, Nondistended and Positive Bowel Sounds
Musculoskeletal: No Cyanosis and No Edema
Skin: Warm. Dry.
Neuro: Nonfocal/Grossly Intact
Impression:
Severe sepsis secondary to bacterial pneumonia.
Septic Shock.
Acute on chronic hypoxic respiratory failure secondary to above
Pseudomonas bacteremia
COVID-19 +4 days prior to admission.
Suspect severe aspiration syndrome.
Mild elevation of transaminases
Metabolic acidosis with elevated lactic acid level.
Severe dehydration with hypernatremia.
Septic shock with hypotension not responding to IV fluids, requiring vasopressor support
Severe protein calorie malnutrition with BMI of 17.
Conditions prior to admission:
Aortic aneurysm.
CAD.
Essential hypertension
Chronic respiratory failure on O2 supplementations at 2 L.
Recent PE on Eliquis.
History of pleural effusion.
Scoliosis.
Ventral hernia.
Depression/anxiety.
Chronic ambulatory dysfunction.
retirement resident
Plan:
CODE STATUS
05/15/24: Dr. Coon had goals of care discussion with POA patient's son Bradford on 05/15/24. Patient is 89 years old female with chronic hypoxic respiratory failure, failure to thrive, bedbound detention resident presented with severe
sepsis, septic shock, acute respiratory failure, severe dehydration with metabolic acidosis with impending multiple organ failure. Remains high risk for progression and decompensation not limited to cardiorespiratory arrest. Patient's son
completely understand situation and wishes not to employ any heroic measures including CPR or invasive ventilation.
DNR.
05/17/24. Patient remained in respiratory distress with tenuous respiratory status while on 6 L mid flow oxygen support. Noncommunicative. Remains high aspiration risk. Later with recurrent hypotension while off pressors. In discussion with
patient's son/power of tax associate attorney and given severe sepsis not responsive to aggressive antibiotic, IV fluids, and pressor therapy, as well as advanced dementia with severe aspiration syndrome comfort would be a priority. Patient's family agreed to
Comfort Care and Comfort Care measures were started.
05/18/24: Patient appears to be comfortable. Reached out to hospice nurse and case management.
-Continue Comfort Care. After discussion with hospice nurse, and patient's nurse, and given patient's significant labored and worsened dyspnea, ordered Morphine Drip to start today -- patient's son was made aware of this plan and
was in agreement with it, and patient's son also said patient looks better with the Morphine Drip, and nurse reported patient looked more comfortable with the Morphine Drip.
-Continue Morphine Drip
Anticipated Discharge: 24 - 48 hours
Subjective/Interval History
-
Date of Service: May 19, 2024
Patient was seen and examined. Earlier in the morning she was doing okay, but later in the morning patient had significantly worsened and labored breathing requiring Morphine Drip, which helped her dyspnea.
Objective Data
-
Vital Signs:
Vital Signs
Temp Pulse Resp BP Pulse Ox
97.6 F 77 20 93/56 86
05/19/24 08:10 05/19/24 08:10 05/19/24 08:10 05/19/24 08:10 05/19/24 08:10
I&O
05/18/24 05/19/24 05/20/24
06:59 06:59 06:59
Intake Total 2400 / 2400
Balance 2400 / 2400
--- NOTE | 2024-05-19 14:58 | PTCARENOTE ---
pt seemed in respiratory distress this morning, PRN Morphine and Ativan given as ordered. PRN dose and frequency not enough to keep patient comfortable, reached out to Hospitalist and Morphine gtt initiated. Patient got another breakthrough dose of
Morphine and along with the gtt she was more comfortable. Son came to visit briefly today, emotional support given, made him aware that the hospital will call with updates on his mother's condition.
[2024-05-19 15:20] VITALS: BP 105/87
[2024-05-19 19:32] VITALS: BP 86/53
[2024-05-20 07:00] VITALS: BP 112/90
[2024-05-20] MEDS: MORPHINE SULFATE 2 MG IV ×2 (13:13→16:56)
--- NOTE | 2024-05-20 13:19 | CM ---
Patient on comfort care-on morphine drip
Per hospice not GIP appropriate
Per nursing family was in to see patient yesterday
PLAN: Comfort care
--- NOTE | 2024-05-20 16:28 | W.PN.HOSP.TC ---
Today's Communication/Plan
-
Unresponsive with agonal respirations while on morphine drip
Continue comfort
Assessment / Plan
Assessment / Plan
Physical Exam
General: No Apparent Distress
HEENT: Normocephalic, Atraumatic
Respiratory: Clear to Auscultation Bilaterally
Cardiac: Regular Rhythm and S1/S2
GI: Soft, Nontender, Nondistended and Positive Bowel Sounds
Musculoskeletal: No Cyanosis and No Edema
Skin: Warm. Dry.
Neuro: Nonfocal/Grossly Intact
Impression:
Severe sepsis secondary to bacterial pneumonia.
Septic Shock.
Acute on chronic hypoxic respiratory failure secondary to above
Pseudomonas bacteremia
COVID-19 +4 days prior to admission.
Suspect severe aspiration syndrome.
Mild elevation of transaminases
Metabolic acidosis with elevated lactic acid level.
Severe dehydration with hypernatremia.
Septic shock with hypotension not responding to IV fluids, requiring vasopressor support
Severe protein calorie malnutrition with BMI of 17.
Conditions prior to admission:
Aortic aneurysm.
CAD.
Essential hypertension
Chronic respiratory failure on O2 supplementations at 2 L.
Recent PE on Eliquis.
History of pleural effusion.
Scoliosis.
Ventral hernia.
Depression/anxiety.
Chronic ambulatory dysfunction.
[facility] resident
Plan:
CODE STATUS
05/15/24: Dr. Coon had goals of care discussion with POA patient's son Bradford on 05/15/24. Patient is 89 years old female with chronic hypoxic respiratory failure, failure to thrive, bedbound detention resident presented with severe
sepsis, septic shock, acute respiratory failure, severe dehydration with metabolic acidosis with impending multiple organ failure. Remains high risk for progression and decompensation not limited to cardiorespiratory arrest. Patient's son
completely understand situation and wishes not to employ any heroic measures including CPR or invasive ventilation.
DNR.
05/17/24. Patient remained in respiratory distress with tenuous respiratory status while on 6 L mid flow oxygen support. Noncommunicative. Remains high aspiration risk. Later with recurrent hypotension while off pressors. In discussion with
patient's son/power of erisa attorney and given severe sepsis not responsive to aggressive antibiotic, IV fluids, and pressor therapy, as well as advanced dementia with severe aspiration syndrome comfort would be a priority. Patient's family agreed to
Comfort Care and Comfort Care measures were started.
05/18/24: Patient appears to be comfortable. Reached out to hospice nurse and case management.
-Continue Comfort Care. After discussion with hospice nurse, and patient's nurse, and given patient's significant labored and worsened dyspnea, ordered Morphine Drip to start today -- patient's son was made aware of this plan and
was in agreement with it, and patient's son also said patient looks better with the Morphine Drip, and nurse reported patient looked more comfortable with the Morphine Drip.
-Continue Morphine Drip
Anticipated Discharge: 24 - 48 hours
Subjective/Interval History
-
Date of Service: May 20, 2024
Objective Data
-
Vital Signs:
Vital Signs
Temp Pulse Resp BP Pulse Ox
94.5 F L 89 6 112/90 76
05/20/24 07:00 05/20/24 07:00 05/20/24 07:00 05/20/24 07:00 05/20/24 07:00
Physical Exam
-
General: Well Developed and No Apparent Distress
HEENT: Normocephalic, Atraumatic and Moist Mucous Membranes
Respiratory: Other (Agonal aspirations)
Cardiac: Regular Rhythm and S1/S2; Negative Murmur, Rub or Gallop
GI: Soft, Nontender, Nondistended and Normal Bowel Sounds; Negative Organomegaly
Rectal: Deferred by Provider
Musculoskeletal: No Clubbing, No Cyanosis and No Edema
Skin: Negative Rash
Neuro: Other (Unresponsive)
Psych: Calm
[2024-05-20 19:30] VITALS: BP 67/44
[2024-05-20 21:23] VITALS: BP 67/44
[2024-05-21] MEDS: MORPHINE SULFATE 2 MG IV ×2 (02:04→04:06)
[2024-05-21] MEDS: NSS (PRESERVATIVE FREE) 1 ML IV (04:06)
[2024-05-21] MEDS: ATIVAN 2 MG IV (04:06)
--- NOTE | 2024-05-21 05:28 | W.PN.DEATH ---
Pronouncement of
-
Called to see patient to pronounce.
No spontaneous heart tones or respirations noted.
Patient not responsive to verbal stimuli.
Patient is pronounced .
Time of : 04:45
Date of : 05/21/24
Cause of : Severe sepsis secondary to bacterial pneumonia
Family Notified: Yes
== END 2024-05-21 04:45 | disposition expired | DRG 871 ==
LOC: 2 NORTH 13:56
PROVIDERS: Internal Medicine; Nurse Practitioner; Nurse Practitioner Primary Care; Registered Nurse; ADMITTING PHYSICIAN Hospitalist; ATTENDING PHYSICIAN Internal Medicine; CONSULT PHYSICIAN Internal Medicine Critical Care Medicine; CONSULT PHYSICIAN Internal Medicine Infectious Disease; CONSULT PHYSICIAN Specialist; EMERGENCY PHYSICIAN Emergency Medicine; FAMILY PHYSICIAN Internal Medicine
PROC: XW033E5 Introduction of Remdesivir Anti-infective into Peripheral Vein, Percutaneous Approach, New Technology Group 5 (ICD-10-PCS; 2024-05-14)
PROC: 5A0935A Assistance with Respiratory Ventilation, Less than 24 Consecutive Hours, High Flow/Velocity Cannula (ICD-10-PCS; 2024-05-14)
DX: A41.52 Sepsis due to Pseudomonas (principal); E43 Unspecified severe protein-calorie malnutrition; J15.9 Unspecified bacterial pneumonia; U07.1 COVID-19; J69.0 Pneumonitis due to inhalation of food and vomit; R65.21 Severe sepsis with septic shock; J96.21 Acute and chronic respiratory failure with hypoxia; F03.C3 Unspecified dementia, severe, with mood disturbance; F03.C4 Unspecified dementia, severe, with anxiety; E87.0 Hyperosmolality and hypernatremia; E87.20 Acidosis, unspecified; Z68.1 Body mass index [BMI] 19.9 or less, adult; N39.0 Urinary tract infection, site not specified; Z66 Do not resuscitate; Z51.5 Encounter for palliative care; I25.10 Atherosclerotic heart disease of native coronary artery without angina pectoris; E86.0 Dehydration; D72.810 Lymphocytopenia; D75.1 Secondary polycythemia; I10 Essential (primary) hypertension; I71.9 Aortic aneurysm of unspecified site, without rupture; I95.9 Hypotension, unspecified; R32 Unspecified urinary incontinence; Z28.310 Unvaccinated for COVID-19; Z86.711 Personal history of pulmonary embolism; Z86.79 Personal history of other diseases of the circulatory system; Z79.899 Other long term (current) drug therapy; Z79.01 Long term (current) use of anticoagulants; Z99.81 Dependence on supplemental oxygen
CPT/HCPCS: 71045; 80048; 80053; 81003; 81015; 82248; 82533; 82805; 82962; 83036; 83605; 83735; 85025; 85610; 87040; 87086; 87149; 87186; 87205; 87449; 87502; 87641; 87811; 92526; 92610; 93005; 94640; 96361; 96365; 96375; 99285; 99406; J0248; J3480; J7030